=== PATIENT | female | born 1955 | race Caucasian/White ===

== ENCOUNTER → 2016-10-05 | Outpatient (CLI) | payer BC ==
[~2016-10-05] MED LIST: ASPI-435 PO; CARV6.25 PO; CHOL20007 PO; HALO0.0510 TOP; HMLIS SC; INSDGIPEN SC; IRBE-37 PO; METF-384 PO; MTRCR45 TOP; PANT40TA PO; ROSU40TA PO; TEMA-79 PO
[2016-10-05 13:15] LABS: ESTIMATED AVERAGE GLUCOSE 220 mg/dl; HA1C FLAG Normal (Normal)
[2016-10-05 14:03] LABS: BLOOD UREA NITROGEN 15 mg/dl (7-18); BUN/CREATININE RATIO 14.8 (10-20); CALCIUM 8.6 mg/dl (8.5-10.1); CARBON DIOXIDE 25 mmol/L (21-32); CHLORIDE 108 mmol/L (98-107); GLUCOSE 112 mg/dl (70-99); SODIUM 143 mmol/L (136-145)
== END | disposition home or self-care (01) ==
LOC: C.LABPBG 08:01
PROVIDERS: ATTEND Nurse Practitioner Family
DX: E11.29 Type 2 diabetes mellitus with other diabetic kidney complication (principal)

== ENCOUNTER → 2017-01-04 | Outpatient (CLI) | payer BC ==
[2017-01-04 13:09] LABS: ESTIMATED AVERAGE GLUCOSE 200 mg/dl; HA1C FLAG Normal (Normal)
[2017-01-04 13:16] LABS: THYROID STIMULATING HORMONE 1.11 uIu/ml (0.300-4.500)
== END | disposition home or self-care (01) ==
LOC: C.LABPBG 07:56
PROVIDERS: ATTEND Nurse Practitioner Family
DX: E11.65 Type 2 diabetes mellitus with hyperglycemia (principal); E78.5 Hyperlipidemia, unspecified

== ENCOUNTER → 2017-04-06 | Outpatient (CLI) | payer BC ==
[2017-04-06 13:43] LABS: ESTIMATED AVERAGE GLUCOSE 203 mg/dl; HA1C FLAG Normal (Normal)
== END | disposition home or self-care (01) ==
LOC: C.LABPBG 08:02
PROVIDERS: ATTEND Nurse Practitioner Family
DX: E11.65 Type 2 diabetes mellitus with hyperglycemia (principal)

== ENCOUNTER → 2017-05-24 | Outpatient (CLI) | payer BC ==
--- NOTE | 2017-05-24 07:40 | DIAGNOSTIC IMAGING REPORT ---
RENAL ULTRASOUND CLINICAL HISTORY: Recurrent urinary tract infection. COMPARISON STUDY: None. TECHNIQUE: Sonography of the kidneys and the urinary bladder was performed. FINDINGS: The right kidney measures 11.1 x 4.9 x 4.2 cm and the left measures 11.4 x 4.6 x 4.5 cm. Note is made of a 7 mm right renal cyst. There is slight prominence of each collecting system without rachel hydronephrosis. No renal calculi or solid masses are identified by sonography. Echogenic foci within the bladder are probably artifactual. There was a postvoid residual of 24.5 cc. IMPRESSION: 1. Slight prominence of each collecting system without rachel hydronephrosis. 2. Minimal postvoid residual 25 cc. 3. Echogenic foci within the bladder. The findings are likely artifactual but could be correlated with urinalysis. Electronically signed by: Abdirahman Kovacs M.D. 05/24/2017 7:38 AM Dictated Date/Time: 05/24/2017 7:18 AM
== END | disposition home or self-care (01) ==
LOC: C.ULTR 06:16
PROVIDERS: ATTEND Urology
DX: N39.0 Urinary tract infection, site not specified (principal); R93.41 Abnormal radiologic findings on diagnostic imaging of renal pelvis, ureter, or bladder

== ENCOUNTER → 2017-09-17 | Outpatient (CLI) | payer BC ==
[2017-09-17 12:34] LABS: HEMOGLOBIN A1C 8.2 % (4.5-5.6)
[2017-09-17 12:37] LABS: BLOOD UREA NITROGEN 19 mg/dl (7-18); CALCIUM 8.7 mg/dl (8.5-10.1); CARBON DIOXIDE 28 mmol/L (21-32); CREATININE 1.09 mg/dl (0.60-1.20); GLUCOSE 95 mg/dl (70-99); POTASSIUM 4.2 mmol/L (3.5-5.1); SODIUM 139 mmol/L (136-145)
== END | disposition home or self-care (01) ==
LOC: C.LABPBG 07:26
PROVIDERS: ATTEND Nurse Practitioner Family
DX: E11.65 Type 2 diabetes mellitus with hyperglycemia (principal); E11.29 Type 2 diabetes mellitus with other diabetic kidney complication; E78.5 Hyperlipidemia, unspecified

== ENCOUNTER → 2017-12-22 | Outpatient (CLI) | payer BC ==
[~2017-12-22] MED LIST changes: -HALO0.0510 TOP; +[UNRECOGNIZED DRUG - CODE] TOP
[2017-12-22 13:59] LABS: HEMOGLOBIN A1C 7.8 % (4.5-5.6)
== END | disposition home or self-care (01) ==
LOC: C.LABPBG 08:04
PROVIDERS: ATTEND Nurse Practitioner Family
DX: E11.65 Type 2 diabetes mellitus with hyperglycemia (principal)

== ENCOUNTER → 2018-01-06 | Outpatient (CLI) | payer BC ==
[2018-01-06 13:59] LABS: BASO % 0.2 %; BASO ABS # 0.01 K/uL (0-0.2); EOS % 3.2 %; EOS ABS # 0.18 K/uL (0-0.5); HEMATOCRIT 30.4 % (37-47); HEMOGLOBIN 9.6 g/dL (12.0-16.0); IG# 0.01 K/uL (0.00-0.02); LYMPH % 22.6 %; LYMPH ABS # 1.28 K/uL (1.2-3.4); MEAN CELL VOLUME 81.5 fL (80-100); MEAN CORPUSCULAR HEMOGLOBIN 25.7 pg (25-34); MEAN CORPUSCULAR HGB CONC 31.6 g/dl (32-36); MEAN PLATELET VOLUME 10.2 fL (7.4-10.4); MONO % 11.6 %; MONO ABS # 0.66 K/uL (0.11-0.59); NEUT % 62.2 %; NEUT ABS # 3.53 K/uL (1.4-6.5); PLATELET COUNT 267 K/uL (130-400); RED CELL DISTRIBUTION WIDTH CV 15.3 % (11.5-14.5); RED CELL DISTRIBUTION WIDTH SD 45.4 fL (36.4-46.3); WHITE BLOOD COUNT 5.67 K/uL (4.8-10.8)
[2018-01-06 14:51] LABS: ALBUMIN 3.6 gm/dl (3.4-5.0); ALKALINE PHOSPHATASE 113 U/L (45-117); ALT/SGPT 25 U/L (12-78); AST/SGOT 18 U/L (15-37); BLOOD UREA NITROGEN 15 mg/dl (7-18); CALCIUM 8.7 mg/dl (8.5-10.1); CARBON DIOXIDE 25 mmol/L (21-32); CHOLESTEROL 151 mg/dl (0-200); CREATININE 1.07 mg/dl (0.60-1.20); GLUCOSE 107 mg/dl (70-99); LDL CHOLESTEROL CALCULATED 78 mg/dl; POTASSIUM 4.3 mmol/L (3.5-5.1); SODIUM 141 mmol/L (136-145); TOTAL PROTEIN 6.8 gm/dl (6.4-8.2); TRANSFERRIN 333 mg/dl (200-360)
== END | disposition home or self-care (01) ==
LOC: C.LABPBG 08:35
PROVIDERS: ATTEND Physician Assistant Medical
DX: E78.5 Hyperlipidemia, unspecified (principal); I10 Essential (primary) hypertension; E55.9 Vitamin D deficiency, unspecified; D64.9 Anemia, unspecified; E11.9 Type 2 diabetes mellitus without complications; Z79.899 Other long term (current) drug therapy

== ENCOUNTER 2023-09-21 10:35 | Inpatient (IN) ==
[2023-09-21] MEDS: SODIUM CHLORIDE 0.9% 1,000 ML IV SCH (11:34)
[2023-09-21 11:51] LABS: Basophils # (auto) 0.02 K/uL (0.00-0.20); Basophils % (auto) 0.2 %; Eosinophils # (auto) 0.08 K/uL (0.00-0.50); Eosinophils % (auto) 0.8 %; Hematocrit (blood only) 30.4 % (37.0-47.0); Hemoglobin 10.2 g/dl (12.0-16.0); Immature Granulocytes # (auto) 0.03 K/uL (0.01-0.20); Immature Granulocytes % (auto) 0.3 %; Lymphocytes # (auto) 1.17 K/uL (1.20-3.40); Mean Corpuscular Hemoglobin 27.9 pg (25.0-34.0); Mean Corpuscular Hgb Conc 33.6 g/dL (32.0-36.0); Mean Corpuscular Volume 83.3 fL (80.0-100.0); Monocytes % (auto) 8.2 %; Neutrophils # (auto) 7.61 K/uL (1.40-6.50); Neutrophils % (auto) 78.5 %; Platelet Count 232 K/uL (130-400); RDW Coefficient of Variation 13.6 % (11.5-14.5); RDW Standard Deviation 41.6 fL (36.4-46.3); Red Blood Count 3.65 M/uL (4.20-5.40); White Blood Count 9.71 K/ul (4.8-10.8)
--- NOTE | 2023-09-21 11:58 | Emergency Department Note ---
Impression & Plan TRISTA (acute kidney injury), Dehydration ED Provider Note ED Provider Note NAME: CARLO CHAMORRO AGE:68 SEX: Female : 1955 ARRIVES VIA: Private vehicle INFORMANT: Patient ED PROVIDER(s): Adenike Cohen DO CHIEF COMPLAINT: Referred by PCP due to abnormal outpatient labs HPI: This is a 68 yo female who presents to the ER after being referred here by her PCP due to abnormal outpatient labs that were performed yesterday for a routine follow-up visit. Patient denies any prior history of kidney dysfunction and states she has been feeling unwell since about Elieser time. She states she was previously told her kidneys were stable and has previously seen Dr. Coburn of nephrology. She denies any recent back pain or abdominal pain, no recent urinary tract infection. She denies any prior history of kidney stone. She states since starting Ozempic per endocrinology, she feels she has had a decreased appetite, increased fatigue and malaise. She denies any overt fevers, chills, or URI symptoms. She states she has had decreased stools due to decreased oral intake. She states she has not noticed any overt change in her urine. PAST MEDICAL HISTORY:See Below PAST SURGICAL HISTORY:See Below FAMILY HISTORY:See Below SOCIAL HISTORY:See Below HOME MEDICATIONS:See Below ALLERGIES:See Below VITALS:See Below PHYSICAL EXAMINATION: GENERAL: alert, well appearing, well nourished, no distress, non-toxic EYE EXAM: normal conjunctiva, PERRL and EOM's grossly intact OROPHARYNX: no exudate, no erythema, lips, buccal mucosa, and tongue normal and mucous membranes are mildly dry NECK: supple, no nuchal rigidity, no adenopathy, non-tender LUNGS: Clear to auscultation. Normal chest wall mechanics, no w/r/r HEART: no murmurs, S1 normal and S2 normal ABDOMEN: abdomen soft, non-tender, normo-active bowel sounds, no masses, no rebound or guarding. SKIN: no rashes, petechiae, orbruising UPPER EXTREMITIES: upper extremities are grossly normal. FROM, nml pulses b/l. LOWER EXTREMITIES: No pitting edema. FROM, nml pulses b/l. NEURO EXAM: Normal sensorium, cranial nerves II-XII grossly intact, normal speech, no facial droop,nogross weakness of arms, no gross weakness of legs. Gross sensation intact. No ataxia. Vital Signs: reviewed and remarkable Differential Diagnosis: TRISTA, dehydration, electrolyte abnormality, nephrotic syndrome, nephritic syndrome, ureterolithiasis, UTI, medication adr, as well as others were considered MEDICAL DECISION MAKING: This is a 68-year-old female presents emergency department after being called and told to come to the ER by her PCP due to abnormal outpatient labs. Patient well-appearing and vital signs stable on arrival. Labs drawn and sent, IV established, EKG performed at bedside and interpreted by me and patient monitored on telemetry. Patient started on gentle IV fluid rehydration. Urine collected and patient sent for renal ultrasound. Patient found to have significant increase in creatinine compared to priors. Patient discussed with hospitalist team for additional evaluation and management, renal ultrasound and urinalysis pending at that time. Patient admits to recent decreased intake and likely coming dehydration however also suspicious for possible medication ADR. No prior history of kidney dysfunction. I have a low suspicion for occult infectious etiology at this time. Consultation(s): 1250: Discussed with Jessica Real hospitalist team, for additional evaluation and management. ER Treatment Provided: See below Diagnostics Interpreted By Me: -ECG: Normal sinus at 74, first-degree AV block, normal axis, normal intervals, no acute ST/T wave changes -Cardiac Monitoring: An order was placed for continuous cardiac monitoring. The monitor shows a rate of 80 with normal sinus rhythm. -Laboratory studies: As stated above and show below. -Imaging studies: Ultrasound renal: No obvious bladder stone or nephrolithiasis Triage Nursing Note Reviewed Prior/Outside Records Reviewed-prior outside labs including prior creatinines Past Med/Surg History Medical History History of uterine cancer 1982, uterine and cervical; only surgical tx needed Palpitations Recurrent UTI Surgical History History of arthroscopy of both shoulders History of esophagogastroduodenoscopy (EGD) Hx of colonoscopy Hx of total hysterectomy with removal of both tubes and ovaries History of cardiac cath 2012, was having neck pain and issues, ph kiesha, no stents>no findings; f/u dr. briceno, [facility] [place] Hx of fusion of cervical spine x2, 1 year apart; ROM "is good" Hx of cataract extraction rt/lt Gastric bypass status for obesity ~2008 History of cholecystectomy Family History Mother Coronary heart disease Social History Smoking Status: Never smoker Second Hand Exposure: Yes (hx [id number]); Do You Dip or Chew Tobacco: No; Hx Alcohol Use: No Hx Substance Use: No Preferred Language: Tajik Communication Ability: Effective Sql Server Dba Required: No Beliefs That Will Affect Care: None marital status: Current Living Situation: Spouse current occupational status: retired Feels Safe at Home: Yes Safety Concerns: Feels Safe At This Time Assistive Devices: None Allergies Allergies Allergy/AdvReac Type Severity Reaction Status Date / Time pioglitazone [From Actos] Allergy itching, Verified 05/03/23 10:24 swelling Home Meds Home Medications Medication Instructions Recorded Confirmed Lactobacillus 1 cap PO QAM 03/08/19 09/21/23 acidophilus-Bifidobac.animalis 31 billion cell capsule cyanocobalamin (vitamin B-12) 1,000 mcg IM Q30D 03/08/19 09/21/23 1,000 mcg/mL injection solution pantoprazole 40 mg tablet,delayed 40 mg PO QAM 03/08/19 09/21/23 release pen needle, diabetic 32 gauge x #10 ea 04/14/19 03/30/23/32" (BD Ultra-Fine Georgie Pen Needle) rosuvastatin 40 mg tablet 40 mg PO HS 04/14/19 09/21/23 irbesartan 150 mg tablet (Avapro) 150 mg PO QAM 08/29/20 09/21/23 carvedilol 6.25 mg tablet (Coreg) 6.25 mg PO BID 09/15/21 09/21/23 cholecalciferol (vitamin D3) 125 125 mcg PO QAM 09/15/21 09/21/23 mcg (5,000 unit) capsule insulin glargine 100 unit/mL (3 50 unit subcut HS 09/15/21 09/21/23 mL) subcutaneous pen (Lantus Solostar U-100 Insulin) baclofen 10 mg tablet 10 mg PO DAILY PRN muscle spasms 03/13/23 02/06/24 insulin lispro 100 unit/mL See Rx Instructions subcut .COMPLEX 05/03/23 09/21/23 subcutaneous solution (Humalog U-100 Insulin) insulin syringe-needle U-100 0.5 #10 ea 05/03/23 05/03/23 mL 31 gauge x 5/16" (BD Insulin Syringe Ultra-Fine) semaglutide 0.25 mg or 0.5 mg (2 0.5 mg subcut Q7D 09/21/23 09/21/23 mg/3 mL) subcutaneous pen injector (Ozempic) Previous Rx's Medication Instructions Recorded flash glucose scanning reader #1 ea 09/16/21 (FreeStyle Sidney 2 [place]) flash glucose sensor (FreeStyle #6 ea 03/11/22 Sidney 2 Sensor kit) metformin 500 mg tablet,extended 1,000 mg (2 x 500 mg) PO BID #360 05/12/22 release 24 hr tabs ciprofloxacin HCl 500 mg tablet 500 mg PO BID PRN UTI symptoms #30 01/27/23 tabs flash glucose sensor (FreeStyle #2 ea 04/20/23 Sidney 2 Sensor kit) Results & Data (ED) Vital Signs Vital Signs - 24 hr 09/21/23 10:40 09/21/23 12:23 09/21/23 12:26 Temperature 36.9 C Temperature Source Temporal Artery Scan Pulse Rate 62 78 78 Pulse Rate from SpO2 Sensor 76 Respiratory Rate 16 12 Respiratory Effort / Characteristics Non-Labored Spontaneous Respiratory Depth Normal Blood Pressure 155/71 H Blood Pressure Mean 99 Pulse Oximetry 98 97 Oxygen Delivery Method Room Air Sepsis Recent Fever Within 48 Hours No Sepsis New/Unexplained Change in Mental Status No Sepsis Action Taken by Nursing No Action Required 09/21/23 12:30 09/21/23 12:30 09/21/23 12:40 Temperature Temperature Source Pulse Rate 79 71 Pulse Rate from SpO2 Sensor 76 64 Respiratory Rate 20 18 Respiratory Effort / Characteristics Respiratory Depth Blood Pressure 130/67 Blood Pressure Mean 96 Pulse Oximetry 97 97 Oxygen Delivery Method Sepsis Recent Fever Within 48 Hours Sepsis New/Unexplained Change in Mental Status Sepsis Action Taken by Nursing Laboratory Data 09/21/23 11:30 09/21/23 16:46 Lab Results 09/21/23 Range/Units 11:30 WBC 9.71 (4.8-10.8) K/ul RBC 3.65 L (4.20-5.40) M/uL Hgb 10.2 L (12.0-16.0) g/dl Hct 30.4 L (37.0-47.0) % MCV 83.3 (80.0-100.0) fL MCH 27.9 (25.0-34.0) pg MCHC 33.6 (32.0-36.0) g/dL RDW Std Deviation 41.6 (36.4-46.3) fL RDW Coeff of Dany 13.6 (11.5-14.5) % Plt Count 232 (130-400) K/uL MPV 10.0 (9.4-12.4) fL Immature Gran % (Auto) 0.3 % Neut % (Auto) 78.5 % Lymph % (Auto) 12.0 % [place] % (Auto) 8.2 % Eos % (Auto) 0.8 % Baso % (Auto) 0.2 % Neut # (Auto) 7.61 H (1.40-6.50) K/uL Lymph # (Auto) 1.17 L (1.20-3.40) K/uL [place] # (Auto) 0.80 H (0.11-0.59) K/uL Eos # (Auto) 0.08 (0.00-0.50) K/uL Baso # (Auto) 0.02 (0.00-0.20) K/uL Immature Gran # (Auto) 0.03 (0.01-0.20) K/uL Sodium 138 (136-145) mmol/L Potassium 2.9 L (3.5-5.1) mmol/L Chloride 101 (98-107) mmol/L Carbon Dioxide 29 (21-32) mmol/L Anion Gap 8 (3-11) BUN 34 H (6-23) mg/dl Creatinine 3.05 H (0.6-1.2) mg/dl Est Cr Clr Drug Dosing 15.8 ml/min Est GFR ( Amer) 17.2 ml/min Est GFR (Non-Af Amer) 14.8 ml/min BUN/Creatinine Ratio 11.1 (10-20) Glucose 92 (70-99(Fasting)) mg/dl Calcium 8.9 (8.6-10.3) mg/dl Magnesium 2.1 (1.7-2.4) mg/dl Total Bilirubin 0.7 (0.2-1.0) mg/dl AST 134 H (13-39) U/L ALT 155 H (7-52) U/L Alkaline Phosphatase 66 (34-104) U/L Total Creatine Kinase 5168 H (26-192) U/L Total Protein 6.0 (6.0-8.3) gm/dl Albumin 3.7 (3.4-5.0) gm/dl Globulin 2.3 L (2.5-4.0) gm/dl Albumin/Globulin Ratio 1.6 (0.9-2) Lipase 41 (11-82) U/L Administered Medications Carvedilol (Carvedilol 6.25 Mg Tab) 6.25 mg PO BIDM VIOLETA Stop: 10/21/23 16:59 Last Admin: 09/21/23 17:16 Dose: 6.25 mg Documented By: ANAID Lactated Ringer's (Lr) 1,000 mls @ 100 mls/hr IV .Q10H VIOLETA Stop: 10/21/23 14:52 Last Admin: 09/21/23 15:16 Dose: 100 mls/hr Documented By: ANAID Discontinued Medications Sodium Chloride (Nss) 1,000 mls @ 125 mls/hr IV .Q8H VIOLETA Stop: 10/21/23 11:29 Last Infusion: 09/21/23 15:16 Dose: 0 mls/hr Documented By: Admin: 09/21/23 11:34 Dose: 125 mls/hr Documented By: PROSPER Potassium Chloride (K Eriberto / Wtr) 10 meq in 100 mls @ 100 mls/hr IV Q1H VIOLETA Stop: 09/21/23 17:29 Last Admin: 09/21/23 16:53 Dose: 100 mls/hr Documented By: Infusion: 09/21/23 16:42 Dose: Infused Documented By: Admin: 09/21/23 15:42 Dose: 100 mls/hr Documented By: Infusion: 09/21/23 15:29 Dose: Infused Documented By: Admin: 09/21/23 14:29 Dose: 100 mls/hr Documented By: TEODORA Potassium Chloride (Potassium Chloride Crtab 20 Meq Tabcr) 40 meq PO NOW STA Stop: 09/21/23 13:12 Last Admin: 09/21/23 14:29 Dose: 40 meq Documented By: ARS Imaging Data Radiologist's Impression: Renal Ultrasound 09/21/23 12:40 RENAL ULTRASOUND HISTORY: Acute kidney injury. COMPARISON: Renal ultrasound 05/24/2017. FINDINGS: Right kidney: 11.4 cm. No hydronephrosis. This 1.3 cm parapelvic cyst. Normal corticomedullary differentiation and cortical thickness. Left kidney: 12.3 cm. No hydronephrosis. Normal corticomedullary differentiation and cortical thickness. Bladder: No bladder wall thickening. Only the left ureteral jet was identified this time. IMPRESSION: 1. No hydronephrosis. 2. Normal bladder. ACT 112: Negative or not required by law. Electronically signed by: Zach Machuca M.D. 09/21/2023 2:54 PM Discharge Plan Visit Data Chief Complaint: Referred by Doctor Stated Complaint: ABNORMAL LABS, DEHYDRATION ED Provider: Adenike Cohen Discharge Problem: TRISTA (acute kidney injury), Dehydration Patient Disposition: Admitted As Inpatient Discharge Instructions Interventions: ED Discharge Assessment Last Done: 09/21/23 14:54
[2023-09-21 12:08] LABS: Albumin Globulin Ratio 1.6 (0.9-2); Albumin Level 3.7 gm/dl (3.4-5.0); BUN Creatinine Ratio 11.1 (10-20); Bilirubin,Total 0.7 mg/dl (0.2-1.0); Calcium 8.9 mg/dl (8.6-10.3); Creatinine Clr Calc Pharmacy 15.8 ml/min; Est GFR (African American) 17.2 ml/min; Est GFR (Non-African American) 14.8 ml/min; Globulin 2.3 gm/dl (2.5-4.0); Magnesium 2.1 mg/dl (1.7-2.4); Potassium 2.9 mmol/L (3.5-5.1)
--- NOTE | 2023-09-21 13:26 | History & Physical Report ---
Date of Service September 21, 2023 Assessment & Plan (1) Acute worsening of stage 3 chronic kidney disease: (2) Hypokalemia: (3) Diabetic nephropathy associated with type 2 diabetes mellitus: (4) Hypertension: (5) Dyslipidemia: Plan This is a 68 yr old F who has a significant PMH of insulin dependent T2DM, CKD-[address] Gallardo, Hx of Ilir en Y, HTN, hx of cervical/uterine Ca, urinary incontinence who presents to ED at referral of PCP due to abnormal labs. Acute on Chronic CKD-3 admit to med tele baseline cr ~1.[address] Gallardo obtain urine studies Renal/Bladder US consult nephro hold nephrotoxic agents - metformin, irbesartan Recommend discontinue Ozempic IVF LR @ 100cc/hr repeat BMP @ 1700 further recs to following pending nephro consult Hypokalemia replace Elevated LFTS AST 134, ALT 155 no abd pain, will repeat LFT in a.m. consider RUQ US if worsening Insulin dependent T2DM last a1c 7.7 07/26/23 Lantus/novolog per protocol hold metformin Pt has been significantly requiring less insulin due to weight loss and very poor intake will place on lower dose while hospitalized HTN chronic, stable continue coreg, hold irbesartan closely monitor DVT ppx: SQ Heparin FULL CODE PCP: Dr. Arellano Dispo: med/tele Pt was seen and examined in collaboration with Dr. Zamorano, please see addendum A total of 75 minutes was spent coordinating, documenting, and providing care for this patient excluding time spent in the performance of separately billed services. This included personally viewing all current laboratories and imaging studies, medication reconciliation, outpatient chart review. History of Present Illness Chief Complaint: Referred by PCP 2/2 TRISTA Primary Care Provider: Glen Arellano This is a 68 yr old F who has a significant PMH of insulin dependent T2DM, CKD-[address] Gallardo, Hx of Ilir en Y, HTN, hx of cervical/uterine Ca, urinary incontinence who presents to ED at referral of PCP due to abnormal labs. Pt follows Dr. Gallardo of [facility] and was last seen 07/26/23. This note was reviewed. Baseline cr around 1.2-1.4. On 07/26 cr was 1.7. Pt reports recently starting Ozempic at 0.25mg with dose increase to 0.5mg. She initially started the medication back in April of 2023. Since this time she complains of decreased appetite, increase fatigue and malaise. She denies f/c/s, chest pain, sob, uri sx, n/v/d, abd pain. She denies prior hx of kidney stone, urinary freq/dysuria, or hematuria. She feels she has been urinating about the same, no less/more. She follows [facility] for incontinence, Cardiology and endocrine for diabetes. Pt PCP records unable to be reviewed, PCP Dr. Arellano. She further complains of central back pain in shoulder blade region. She has loss weight, 173 to 154 since 05/09. The sight/smell of food does not set right with her. She is always thirsty. She denies taking any NSAIDS, tobacco use or etoh use. Allergies Allergy/AdvReac Type Severity Reaction Status Date / Time pioglitazone [From Actos] Allergy itching, Verified 05/03/23 10:24 swelling Home Medications Medication Instructions Recorded Confirmed Type Lactobacillus 1 cap PO QAM 03/08/19 09/21/23 History acidophilus-Bifidobac.animalis 31 billion cell capsule cyanocobalamin (vitamin B-12) 1,000 mcg IM Q30D 03/08/19 09/21/23 History 1,000 mcg/mL injection solution pantoprazole 40 mg tablet,delayed 40 mg PO QAM 03/08/19 09/21/23 History release pen needle, diabetic 32 gauge x #10 ea 04/14/19 03/30/23 History 5/32" (BD Ultra-Fine Georgie Pen Needle) rosuvastatin 40 mg tablet 40 mg PO HS 04/14/19 09/21/23 History irbesartan 150 mg tablet (Avapro) 150 mg PO QAM 08/29/20 09/21/23 History carvedilol 6.25 mg tablet (Coreg) 6.25 mg PO BID 09/15/21 09/21/23 History cholecalciferol (vitamin D3) 125 125 mcg PO QAM 09/15/21 09/21/23 History mcg (5,000 unit) capsule insulin glargine 100 unit/mL (3 50 unit subcut HS 09/15/21 09/21/23 History mL) subcutaneous pen (Lantus Solostar U-100 Insulin) flash glucose scanning reader #1 ea 09/16/21 05/03/23 Rx (FreeStyle [place] 2 [place]) flash glucose sensor (FreeStyle #6 ea 03/11/22 05/03/23 Rx Sidney 2 Sensor kit) metformin 500 mg tablet,extended 1,000 mg (2 x 500 mg) PO BID #360 05/12/22 09/21/23 Rx release 24 hr tabs baclofen 10 mg tablet 10 mg PO DAILY PRN muscle spasms 10/26/22 09/21/23 History ciprofloxacin HCl 500 mg tablet 500 mg PO BID PRN UTI symptoms #30 01/27/23 09/21/23 Rx tabs flash glucose sensor (FreeStyle #2 ea 04/20/23 05/03/23 Rx Sidney 2 Sensor kit) insulin lispro 100 unit/mL See Rx Instructions subcut .COMPLEX 05/03/23 09/21/23 History subcutaneous solution (Humalog U-100 Insulin) insulin syringe-needle U-100 0.5 #10 ea 05/03/23 05/03/23 History mL 31 gauge x 5/16" (BD Insulin Syringe Ultra-Fine) semaglutide 0.25 mg or 0.5 mg (2 0.5 mg subcut Q7D 09/21/23 09/21/23 History mg/3 mL) subcutaneous pen injector (LAVEGOempic) Past Med/Surg History Medical History History of uterine cancer 1982, uterine and cervical; only surgical tx needed Palpitations Recurrent UTI Surgical History History of arthroscopy of both shoulders History of esophagogastroduodenoscopy (EGD) Hx of colonoscopy Hx of total hysterectomy with removal of both tubes and ovaries History of cardiac cath 2012, was having neck pain and issues, ph kiesha, no stents>no findings; f/u dr. briceno, [facility] [place] Hx of fusion of cervical spine x2, 1 year apart; ROM "is good" Hx of cataract extraction rt/lt Gastric bypass status for obesity ~2008 History of cholecystectomy Family History Mother Coronary heart disease Social History Smoking Status: Never smoker Second Hand Exposure: Yes (hx [id number]); Do You Dip or Chew Tobacco: No; Hx Alcohol Use: No Hx Substance Use: No Preferred Language: Telugu Communication Ability: Effective Sharepoint Designer Developer Required: No Beliefs That Will Affect Care: None marital status: Current Living Situation: Spouse current occupational status: retired Feels Safe at Home: Yes Assistive Devices: None Review of Systems Review of Systems: All systems reviewed & are unremarkable except as noted in HPI & below Physical Exam Physical Exam: please refer to Dr. Zamorano addendum for physical exam findings. Results & Data Results & Data Vital Signs (Past 12 Hours) Vital Signs Temp Pulse Resp BP Pulse Ox O2 Del Method 09/21/23 12:40 71 18 97 09/21/23 12:30 130/67 09/21/23 12:30 79 20 97 09/21/23 12:26 78 09/21/23 12:23 78 12 97 09/21/23 10:40 36.9 C 62 16 155/71 H 98 Room Air Medications Administered Medication List Sodium Chloride (Nss) 1,000 mls @ 125 mls/hr IV .Q8H VIOLETA Stop: 10/21/23 11:29 Last Admin: 09/21/23 11:34 Dose: 125 mls/hr Documented By: PROSPER COVID-19 Results Results COVID-19 Adm Lab Results: RBC 3.65 M/uL (4.20-5.40) L 09/21/23 WBC 9.71 K/ul (4.8-10.8) 09/21/23 Hgb 10.2 g/dl (12.0-16.0) L 09/21/23 Hct 30.4 % (37.0-47.0) L 09/21/23 Plt Count 232 K/uL (130-400) 09/21/23 Neutrophils (%) (Auto) 78.5 % 09/21/23 Lymphocytes (%) (Auto) 12.0 % 09/21/23 Monocytes # (Auto) 0.80 K/uL (0.11-0.59) H 09/21/23 Eosinophils # (Auto) 0.08 K/uL (0.00-0.50) 09/21/23 Immature Granulocyte % (Auto) 0.3 % 09/21/23 Neutrophils # (Auto) 7.61 K/uL (1.40-6.50) H 09/21/23 Lymphocytes # (Auto) 1.17 K/uL (1.20-3.40) L 09/21/23 Monocytes # (Auto) 0.80 K/uL (0.11-0.59) H 09/21/23 Eosinophils # (Auto) 0.08 K/uL (0.00-0.50) 09/21/23 Basophils # (Auto) 0.02 K/uL (0.00-0.20) 09/21/23 Immature Granulocyte # (Auto) 0.03 K/uL (0.01-0.20) 4 Na 138 mmol/L (136-145) 09/21/23 K 2.9 mmol/L (3.5-5.1) L 09/21/23 Cl 101 mmol/L (98-107) 09/21/23 CO2 29 mmol/L (21-32) 09/21/23 Anion Gap 8 (3-11) 09/21/23 BUN 34 mg/dl (6-23) H 09/21/23 Creatinine 3.05 mg/dl (0.6-1.2) H 09/21/23 BUN/Creatinine Ratio 11.1 (10-20) 09/21/23 Glucose Level 92 mg/dl (70-99(Fasting)) 09/21/23 Ca 8.9 mg/dl (8.6-10.3) 09/21/23 Total Bilirubin 0.7 mg/dl (0.2-1.0) 09/21/23 AST/SGOT 134 U/L (13-39) H 09/21/23 ALT/SGPT 155 U/L (7-52) H 09/21/23 Alkaline Phosphatase 66 U/L (34-104) 09/21/23 Total Protein 6.0 gm/dl (6.0-8.3) 09/21/23 Albumin 3.7 gm/dl (3.4-5.0) 09/21/23 Globulin 2.3 gm/dl (2.5-4.0) L 09/21/23 Albumin/Globulin Ratio 1.6 (0.9-2) 09/21/23 Total CK Pending 09/21/23 Code Status & VTE Plan Code Status FULL CODE VTE Prophylaxis Plan VTE Prophylaxis will be ordered: Yes Supervising Physician Co-Signing Physician Notes I have seen and discussed the case with the collaborating PETER. I agree with the above H&P. I have reviewed and confirmed the patients medical history, the findings on physical examination, and the patients diagnosis and treatment plan with [place] GREEN and agree with the information documented. In short, Ms. Ramos is a 68 year old insulin dependent T2DM, CKD-[address] Gallardo, Hx of Ilir en Y, HTN, hx of cervical/uterine Ca, urinary incontinence admitted for eval of TRISTA on CKDIII in setting of progressive weakness, poor appetite. Patient states that she has felt like she was on a decline since July, but generally has felt poor since starting Ozempic. She notes that over the last week she gas felt more fatigued and experienced bilateral flank discomfort, but denies changes to volume/frequency of urination, nor denies any dysuria or other symptoms. She states her bowels have been more constipated lately as well. Denies any confusion or edema of extremities. Patient also notes sensation of "heart beating out of her chest" while laying down at night. Labs reviewed and notable for transaminitis without symptoms, TRISTA to 3.05 and K to 2.9. UA with protein c/w prior, blood no RBCs--CK pending GENERAL APPEARANCE: AxOx4, unwell appearing F, no acute distress. HEENT: NC, AT. MMM. EOMI, clear conjunctiva, oropharynx clear. NECK: Supple without lymphadenopathy. No stiffness or restricted ROM. HEART: Normal rate and regular rhythm, normal S1/S1, no m/r/g LUNGS: CTAB, moving air well. No crackles or wheezes are heard. ABDOMEN: Soft, nontender, nondistended with good bowel sounds heard. BACK: mild CVAT, no obvious deformity. EXTREMITIES: Without cyanosis, clubbing or edema. NEUROLOGICAL: Grossly nonfocal. Alert and oriented, moving all 4 extremities. CN not formally tested but appear grossly intact. Skin: Warm and dry without any rash. #TRISTA on CKDIII -IVF -Repeat BMP -Urine lytes, protein/cr -IF bmp without improvement, plan for ortega Daily weights, I/Os Nephrology consult Follow up renal ultrasound Hold Irbesartan #Hypokalemia 2.9 on arrival 40meq via IV and 40 PO Monitor on Tele Trend BMP and replace prn #DMTII -Discontinue ozempic -SSI, patient reports minimal use of humalog at home, and reducing glargine Rest of plan as above I have reviewed the advanced practitioner's documentation, and I agree with, and take responsibility for the plan of care
[2023-09-21 13:40] LABS: Appearance Urine Cloudy (Clear); Bacteria Urine Automated Negative (Negative); Bilirubin Urine Negative (Negative); Blood Urine 3+ (Negative); Color Urine Yellow; Epithelial Cell Urine Auto >30 /lpf (0-5); Glucose Urine UA Negative (Negative); Ketones Urine Negative (Negative); Leukocyte Esterase Urine 1+ (Negative); Nitrite Urine Negative (Negative); Protein Urine 2+ (Negative); RBC Urine Automated 0-4 /hpf (0-4); Specific Gravity Urine 1.007 (1.000-1.030); Urobilinogen Urine Negative (Negative); pH Urine 5.5 (4.5-7.5)
[2023-09-21 14:03] LABS: Protein Creatinine Ratio Urine 2.7 (0-0.2); Total Protein Urine Random 141.8 mg/dl (0-11.9); Urine Potassium 14.4 mmol/L
[2023-09-21] MEDS: POTASSIUM CHLORIDE / WTR 10 MEQ/100 ML PLCT IV SCH (14:29)
[2023-09-21] MEDS: POTASSIUM CHLORIDE CRTAB 20 MEQ TABCR PO STA (14:29)
--- NOTE | 2023-09-21 14:29 | Electrocardiogram Report ---
Test Reason : Blood Pressure : / mmHG Vent. Rate : 074 BPM Atrial Rate : 074 BPM P-R Int : 230 ms QRS Dur : 072 ms QT Int : 394 ms P-R-T Axes : 059 018 063 degrees QTc Int : 437 ms Sinus rhythm with 1st degree A-V block When compared with ECG of 03-JUN-2022 10:34, Sinus rhythm has replaced Ectopic atrial rhythm Confirmed by Kwabena Harris ([id number]) on 09/21/2023 2:29:41 PM Referred By: REFERRED SELF Confirmed By:Kwabena Harris
[2023-09-21] MEDS ORDERED: DEXTROSE 50% 50 ML SYRINGE IV PRN (14:53)
[2023-09-21] MEDS ORDERED: GLUCAGON FOR INJ 1 MG VIAL SQ PRN (14:53)
[2023-09-21] MEDS ORDERED: GLUCOSE 40% GEL 15 GM TUBE PO PRN (14:53)
[2023-09-21] MEDS ORDERED: GLUCOSE 10 TAB/TUBE PO PRN (14:53)
--- NOTE | 2023-09-21 14:55 | Ultrasound Report ---
RENAL ULTRASOUND HISTORY: Acute kidney injury. COMPARISON: Renal ultrasound 05/24/2017. FINDINGS: Right kidney: 11.4 cm. No hydronephrosis. This 1.3 cm parapelvic cyst. Normal corticomedullary differ entiation and cortical thickness. Left kidney: 12.3 cm. No hydronephrosis. Normal corticomedullary differentiation and cortical thickne ss. Bladder: No bladder wall thickening. Only the left ureteral jet was identified this time. IMPRESSION: 1. No hydronephrosis. 2. Normal bladder. ACT 112: Negative or not required by law. Electronically signed by: Zach Machuca M.D. 09/21/2023 2:54 PM
[2023-09-21] MEDS: LACTATED RINGER'S 1,000 ML IV SCH (15:16)
--- OUTSIDE RECORDS SUMMARY | 2023-09-21 15:16 | External Medical Summary | Summary of Care ---
Author Name Unknown Organization [facility] Address [address] [place] [address] Phone [phone] Care Team Providers Care Website Optimization Strategist Name Role Phone Glen Arellano MD Primary Care Provider + [phone] Encounter Details Date Type Department Care Team (Late st Contact Info) Description 08/30/2023 Orders Only Nephrology, Will Romo [address] [facility] [place] [address] GallardoMelissa galvez MD [address] [facility] [place] [address] Allergies Active Allergy Reactions Criticality Noted Date Comments Pioglitazone Rash 10/05/2019 Spironolactone Other (Please comment) 3 Severe dizziness even with low dose. documented as of this encounter (statuses as of 08/30/2023) Medications Medication Sig Dispensed Refills Start Date End Date Status PROTONIX 40 MG PO TBECIndications:Acute marginal ulcer 1 tablet each day 30 4 10/28/2009 Active HUMALOG 100 UNIT/ML SUBQ SOLN 10 units daily 0 Active LANTUS 100 UNIT/ML SUBQ SOLN 20 units eevery AM 0 Active MetFORMIN (GLUCOPHAGE) 1000 MG Tablet Take 1 Tablet by mouth 2 times a day with morning and evening meals. 0 Active rosuvastatin (CRESTOR) 40 MG Tablet Take 1 Tablet by mouth in the morning. 0 05/17/2017 Active Aspirin 81 MG Tablet Take 1 Tablet by mouth in the morning. 0 Active Probiotic Product (PROBIOTIC & ACIDOPHILUS EX ST) Capsule Take 1 Cap by mouth three times a day with meals. 0 Active vitamin b-12 (CYANOCOBALAMIN) 1000 MCG/ML injection Inject 1,000 mcg as directed Every Month. 0 08/10/2019 Active Irbesartan 150 MG Oral Tablet Take 1 Tablet by mouth at bedtime. 0 11/13/2020 Active Ozempic (0.25 or 0.5 MG/DOSE) 2 MG/3ML Solution Pen-injector Inject 0.5 mg under the skin once a week. 0 07/17/2023 Active Carvedilol 6.25 MG Oral Tablet (Coreg) Take 1 Tablet by mouth 2 times a day with morning and evening meals. 0 07/22/2023 Active documented as of this encounter (statuses as of 08/30/2023) Active Problems Problem Noted Date Diagnosed Date Chronic kidney disease, stage 3b 10/27/2021 Overview: Per CKD protocol Iron deficiency anemia 01/19/2018 HTN, goal below 140/90 11/18/2017 Vitamin deficiency 03/25/2010 OVERWEIGHT, BMI 25-29 11/11/2009 Overview: Per Obesity Taxonomy Nausea 07/30/2009 Overview: ICD-10 update of inactive term DYSLIPIDEMIA, GOAL LDL BELOW 100 07/29/2009 Overview: Per Lipid Taxonomy. Intestinal postoperative nonabsorption 9 HTN, goal below 130/80 07/09/2009 Overview: Modified per HTN protocol #16. [facility] RESEARCH OTHER*[id number] 06/28/2009 ADVANCE DIRECTIVE INFORMATION 12/26/2008 Overview: No.No booklets available. documented as of this encounter (statuses as of 08/30/2023) Resolved Problems Problem Noted Date Diagnosed Date Resolved Date Type 2 diabetes mellitus wit h stage 3b chronic kidney disease 10/27/2021 08/01/2023 Overview: Per CKD protocol Chronic kidney disease, stage 3a 01/28/2021 10/29/2021 Overview: Per CKD protocol Type 2 diabetes mellitus wit h stage 3a chronic kidney disease 12/24/2020 10/29/2021 Overview: Per CKD protocol Diabetes mellitus with stage 3 chronic kidney disease 11/25/2020 12/26/2020 Overview: Per CKD protocol - Per Diabetes Taxonomy. ICD-10 update of inactive term CKD (chronic kidney disease) stage 3, GFR 30-59 ml/min 11/18/2017 10/26/2019 Type 2 diabetes mellitus wit h stage 3 chronic kidney disease, without long-term current use of insulin 06/13/2009 11/28/2020 Overview: Per Diabetes Taxonomy. ICD-10 update of inactive term Obesity, BMI not known 02/07/200911/11 Overview: Per Obesity Taxonomy Mixed dyslipidemia 02/07/2009 12/14/200 9 Overview: Per Lipid Taxonomy. Other osteoporosis without c urrent pathological fracture 02/07/2009 03/04/2009 Overview: ICD-10 update of inactive term Type 2 diabetes mellitus wit h hemoglobin A1c goal of less than 7.0% 12/26/2008 06/13/2009 Overview: Per Diabetes Taxonomy. ICD-10 update of inactive term HTN, goal to be determined 12/26/2008 1 09/08/2008 Overview: Modified per HTN protocol #16. documented as of this encounter (statuses as of 08/30/2023) Immunizations Name Administration Dates Next Due COVID-19 mRNA, LNP-s, No Pre serve, 2-Dose Series (Pfizer) 05/15/2021,10/29/2020,10/08/2020 Pneumococcal Polysaccharide PPV23 (Pneumovax) 04/26/2020,05/16/2015 Seasonal Influenza, PF, 6 M & above, IM , (FluLaval or Fluzone) 04/04/2020 Seasonal Influenza, Trivalen t, Adjuvanted, 65+ yrs 04/12/2021,04/08/2019 Zoster Vaccine Recombinant (Shingrix) 05/13/2020 ,03/04/2020 documented as of this encounter Social History Tobacco Use Types Packs/Day Years Used Date Smoking Tobacco: Never Smokeless Tobacco: Never Alcohol Use Standard Drinks/Week Comments No 0 (1 standard drink = 0.6 oz pur e alcohol) Sex and Gender Information Value Date Recorded Sex Assigned at Not on file Gender Identity Not on file Sexual Orientation Not on file Job Start Date Occupation Industry Not on file Not on file Not on file documented as of this encounter Plan of Treatment Upcoming Encounters Date Type Department Care Team (Late st Contact Info) Description 04/25/2024 2:00 PM EDT Office Visit Nephrology [address] [place] [address] Abbie Costello PA-C [address] [place] [address] [place] [address] Health Maintenance Due Date Last Done Comments DXA Scan 1953 Depression Screening 1965 Hepatitis C Screening 1971 DTaP,Tdap,and Td Vaccines (1 - Tdap) 1972 Mammogram 1993 Cologuard 1998 Colonoscopy 1998 Colorectal Cancer Screening 1998 Fecal Occult Blood Test 1998 Sigmoidoscopy 1998 Hepatitis B (1 of 3 - Risk 3-dose series) 2013 Pneumococcal Vaccine: 65+ Years (2 - PCV) 04/26/2021 04/26/2020, 05/16/2015 CKD PHOS USE SMARTSET 29759 04/15/202307/16, 04/15/2022, 10/17/2021, Additional history exists COVID-19 Vaccine ( - 2022- season) 2023 05/15/2021, 10/29/2020, 10/08/2020 Influenza Vaccine (FLU shot) (#1) 2023 04/12/2021, 04/04/2020, 04/08/2019 GFR 09/19/2023 07/26/2023, 08/11/2022, 10/28/2022, Additional history exists CKD HGB USE SMARTSET 81259 03/19/202407/26, 03/19/2023, 09/18/2022, Additional history exists Albumin/Creatinine Ratio 07/26/2024 023, 09/18/2022, 04/15/2022, Additional history exists Lipid Panel 03/19/2028 07/26/2023, 08/0 11/2022, 09/18/2022, Additional history exists Zoster Vaccines Completed 05/13/2020, 03/04/2020 Diabetic Eye Exam Discontinued 10/15/2021, , 09/18/2019, Additional history exists GARDASIL-HPV IMMUNIZATION SERIES Aged Out No longer eligible based on patient's age to complete this topic MENINGOCOCCAL (MENACTRA/MENVEO) Aged Out No longer eligible based on patient's age to complete this topic documented as of this encounter Medical Devices Not on filedocumented as of this encounter Procedures Procedure Name Priority Date/Time Associated Diagnosis Comments CHEMISTRY-OUTSIDE Routine 07/26/2023 CHEMISTRY-OUTSIDE Routine 07/26/2023 documented in this encounter Results * (ABNORMAL) CHEMISTRY-OUTSIDE (07/26/2023) Not all results display below - see scan for full detail OUTSIDE LAB (SEE SCANNED REPORT) Comment:PH [place]-CBCD,G FR,CMP,HGBA1C,MPG,LIPID,PHOS CREATININE-OUTSID E LAB 1.71(A) 0.55 - 1.05 MG/DL OUTSIDE LAB (SEE SCANNED REPORT) EGFR-OUTSIDE LAB 32(A) 60 ML/MIN OUT SIDE LAB (SEE SCANNED REPORT) POTASSIUM-OUTSIDE LAB 3.1(A) 3.5 - 5.1 MMOL OUTSIDE LAB (SEE SCANNED REPORT) GLUCOSE-OUTSIDE LAB 104 70 - 110 MG/DL OUTSIDE LAB (SEE SCANNED REPORT) HOURS FASTING OUTSID E LAB (SEE SCANNED REPORT) TRIGLYCERIDES-OUT SIDE LAB 95 30 - 200 MG/DL OUTSIDE LAB (SEE SCANNED REPORT) CHOLESTEROL-OUTSI DE LAB 104 200 MG/DL OUTSIDE LAB (SEE SCANNED REPORT) HDL-OUTSIDE LAB 50 40 - 59 MG/DL OUTSIDE LAB (SEE SCANNED REPORT) CHOL/HDL RATIO-OUTSIDE LAB OUTSIDE LA B (SEE SCANNED REPORT) LDL (CALCULATED)-OUTS [facility] 35 100 MG/DL OUTSIDE LAB (SEE SCANNED REPORT) LDL (DIRECT MEASURE)-OUTSIDE LAB OUTSIDE LAB (SEE SCANNED REPORT) HEMOGLOBIN, [id number] LAB 7.7(A) 3.8 - 5.6 % OUTSIDE LAB (SEE SCANNED REPORT) PHOSPHORUS-OUTSID E LAB 2.7 2.5 - 4.9 MG/DL OUTSIDE LAB (SEE SCANNED REPORT) PTH-OUTSIDE LAB OUTS [facility] (SEE SCANNED REPORT) MICROALBUMIN RATIO-OUTSIDE LAB OUTSIDE LA B (SEE SCANNED REPORT) PROTEIN, UA-OUTSIDE LAB OUTSIDE LAB (SEE SCANNED REPORT) HEMOGLOBIN-OUTSID E LAB 11.5(A) 12 - 16 GM/DL OUTSIDE LAB (SEE SCANNED REPORT) 07/26/2023 Jana Watkins PA-C LABORATORY OUTSIDE LAB (SEE SCANNED REPORT) * (ABNORMAL) CHEMISTRY-OUTSIDE (07/26/2023) Not all results display below - see scan for full detail SCAN INCLUDES: MICROALBU MIN, VIT D, CA, PTH, OUTSIDE LAB (SEE SCANNED REPORT) CREATININE-OUTSID E LAB OUTSIDE LAB (SEE SCANNED REPORT) EGFR-OUTSIDE LAB OUT SIDE LAB (SEE SCANNED REPORT) POTASSIUM-OUTSIDE LAB OUTSIDE LAB (SEE SCANNED REPORT) GLUCOSE-OUTSIDE LAB OUTSIDE LAB (SEE SCANNED REPORT) HOURS FASTING OUTSID E LAB (SEE SCANNED REPORT) TRIGLYCERIDES-OUT SIDE LAB OUTSIDE LAB (SEE SCANNED REPORT) CHOLESTEROL-OUTSI DE LAB OUTSIDE LAB (SEE SCANNED REPORT) HDL-OUTSIDE LAB OUTS [facility] (SEE SCANNED REPORT) CHOL/HDL RATIO-OUTSIDE LAB OUTSIDE LA B (SEE SCANNED REPORT) LDL (CALCULATED)-OUTS [facility] OUTSIDE LAB (SEE SCANNED REPORT) LDL (DIRECT MEASURE)-OUTSIDE LAB OUTSIDE LAB (SEE SCANNED REPORT) HEMOGLOBIN, K0V-CHMPIVW LAB OUTSIDE LAB (SEE SCANNED REPORT) PHOSPHORUS-OUTSID E LAB OUTSIDE LAB (SEE SCANNED REPORT) PTH-OUTSIDE LAB 58.3 18.5 - 88.0 PG/ML OUTSIDE LAB (SEE SCANNED REPORT) MICROALBUMIN RATIO-OUTSIDE LAB 196.2(A) 0.0 - 60.0 MG/GM CR OUTSIDE LAB (SEE SCANNED REPORT) PROTEIN, UA-OUTSIDE LAB OUTSIDE LAB (SEE SCANNED REPORT) HEMOGLOBIN-OUTSID E LAB OUTSIDE LAB (SEE SCANNED REPORT) 07/26/2023 Jana Watkins PA-C LABORATORY OUTSIDE LAB (SEE SCANNED REPORT) documented in this encounter Advance Directives Latest Code Status on File Code Status Date Activated Date Inactivated Comments Full Code 03/13/2010 12:34 PM 03/14/2010 1:25 AM This order reflects the patients wishes and were consensually agreed upon. Code Status History Code Status Date Activated Date Inactivated Comments Full Code 07/08/2009 5:30 PM 07/10/2009 5:07 PM Thi s order reflects the patients wishes and were consensually agreed upon. Full Code 07/08/2009 10:24 AM 07/08/2009 5:30 PM Th is order reflects the patients wishes and were consensually agreed upon. Care Teams Website Optimization Strategist Relationship Specialty Start Date End Date Glen Arellano MD [address] [place] [address] PCP - General Family Medicine 04/05/17 documented as of this encounter
--- OUTSIDE RECORDS SUMMARY | 2023-09-21 15:16 | External Medical Summary | Summary of Care ---
Author Name Unknown Organization [facility] Address [address] [facility] [place] [address] Phone [phone] Care Team Providers Care Console Assembler Name Role Phone Glen Arellano MD Primary Care Provider + [phone] Reason for Visit * Reason Comments Blood Pressure Check Encounter Details Date Type Department Care Team (Late st Contact Info) Description 08/25/2023 9:00 AM EST Nurse Only Nephrology [address] [place] [address] [place], Nurse Nephrology [address] [place] [address] Blood Pressure Check Allergies Active Allergy Reactions Criticality Noted Date Comments Pioglitazone Rash 10/05/2019 Spironolactone Other (Please comment) 3 Severe dizziness even with low dose. documented as of this encounter (statuses as of 08/26/2023) Medications Medication Sig Dispensed Refills Start Date [...] as of this encounter (statuses as of 08/26/2023) Active Problems Problem Noted Date Diagnosed Date [...] Modified per HTN protocol #16. [facility] RESEARCH OTHER*[id number] 06/28/2009 ADVANCE DIRECTIVE INFORMATION 12/26/2008 Overview: No.No booklets available. documented as of this encounter (statuses as of 08/26/2023) Resolved Problems Problem Noted Date Diagnosed Date [...] as of this encounter (statuses as of 08/26/2023) Immunizations Name Administration Dates Next Due COVID-19 [...] Date Smoking Tobacco: Never Smokeless Tobacco: Never Tobacco Cessation:Counseling Given: Not Answered Alcohol Use Standard Drinks/Week Comments No 0 (1 standard drink = 0.6 oz pur e alcohol) Sex and Gender Information Value Date Recorded Sex Assigned at Not on file Gender Identity Not on file Sexual Orientation Not on file Job Start Date Occupation Industry Not on file Not on file Not on file documented as of this encounter Last Filed Vital Signs Vital Sign Reading Time Taken Comments Blood Pressure 145/75 08/25/2023 8:55 AM EST [facility] cuff Pulse - - Temperature - - Respiratory Rate - - Oxygen Saturation - - Inhaled Oxygen Concentration - - Weight - - Height - - Body Mass Index - - documented in this encounter Progress Notes * Eunice Austin RN - 08/26/2023 9:15 AM EST Blood pressure monitor return with log. Will scan to chart. documented in this encounter Nursing Notes * Eunice Austin RN - 08/25/2023 8:55 AM EST Ambulatory BP cuff size regular applied to right arm. BP monitor number [id number]. Log sheet, instructions on use and recording of activities explained to patient/caregiver with verbal understanding of same. [facility] home blood pressure cuff validated at this visit as well. documented in this encounter Plan of Treatment Upcoming Encounters Date Type Department Care Team (Late st Contact Info) Description 04/25/2024 2:00 PM EDT Office Visit Nephrology [address] [place] [address] Abbie Costello PA-C [address] [facility] [place] [address] Health Maintenance Due Date Last Done Comments [...] 04/26/2021 04/26/2020, 05/16/2015 CKD PHOS USE SMARTSET 00529 04/15/202303/18, 10/17/2021, 11/18/2017, Additional history exists COVID-19 Vaccine ( - season) 2023 05/15/2021, 10/29/2020, 10/08/2020 Influenza Vaccine (FLU shot) (#1) 2023 04/12/2021, 04/04/2020, 04/08/2019 Albumin/Creatinine Ratio 09/18/2023 023, 04/15/2022, 11/25/2021, Additional history exists GFR 09/19/2023 03/19/2023, 10/14, 09/18/2022, Additional history exists CKD HGB USE SMARTSET 69116 03/19/202403/19, 09/18/2022, 04/15/2022, Additional history exists Lipid Panel 03/19/2028 03/19/2023, 02/10/2022, 11/25/2021, Additional history exists Zoster Vaccines Completed 05/13/2020, 03/04/2020 Diabetic Eye Exam Discontinued 10/15/2021, , 09/18/2019, Additional history exists GARDASIL-HPV IMMUNIZATION SERIES Aged Out No longer eligible based on patient's age to complete this topic MENINGOCOCCAL (MENACTRA/MENVEO) Aged Out No longer eligible based on patient's age to complete this topic documented as of this encounter Medical Devices Not on filedocumented as of this encounter Advance Directives Latest Code Status [...] and were consensually agreed upon. Care Teams Console Assembler Relationship Specialty Start Date End Date Glen Arellano MD [address] [place] [address] PCP - General Family Medicine 04/05/17 documented as of this encounter
--- OUTSIDE RECORDS SUMMARY | 2023-09-21 15:16 | External Medical Summary | Summary of Care ---
Author Name Unknown Organization [facility] Address [address] [facility] [place] [address] Phone [phone] Care Team Providers Care Ruby On Rails Web Developer Name Role Phone Glen Arellano MD Primary Care Provider + [phone] Reason for Visit * Reason Comments Blood Pressure Check Encounter Details Date Type Department Care Team (Late st Contact Info) Description 08/25/2023 9:00 AM EST Nurse Only Nephrology [address] [place] [address] [place], Nurse Nephrology [address] [place] [address] Blood Pressure Check Allergies Active Allergy Reactions Criticality Noted Date Comments Pioglitazone Rash 10/05/2019 Spironolactone Other (Please comment) 3 Severe dizziness even with low dose. documented as of this encounter (statuses as of 08/27/2023) Medications Medication Sig Dispensed Refills Start Date [...] as of this encounter (statuses as of 08/27/2023) Active Problems Problem Noted Date Diagnosed Date [...] Modified per HTN protocol #16. LOPE[facility] RESEARCH OTHER*[id number] 06/28/2009 ADVANCE DIRECTIVE INFORMATION 12/26/2008 Overview: No.No booklets available. documented as of this encounter (statuses as of 08/27/2023) Resolved Problems Problem Noted Date Diagnosed Date [...] as of this encounter (statuses as of 08/27/2023) Immunizations Name Administration Dates Next Due COVID-19 [...] applied to right arm. BP monitor number [id number]. Log sheet, instructions on use and recording of activities explained to patient/caregiver with verbal understanding of same. [facility] home blood pressure cuff validated at this visit as well. documented in this encounter Plan of Treatment Upcoming Encounters Date Type Department Care Team (Late st Contact Info) Description 04/25/2024 2:00 PM EDT Office Visit Nephrology [address] [place] [address] Abbie Costello PA-C [address] [facility] [place] [address] Health Maintenance Due Date Last Done Comments [...] 04/26/2021 04/26/2020, 05/16/2015 CKD PHOS USE SMARTSET 83678 04/15/202303/18, 10/17/2021, 11/18/2017, Additional history exists COVID-19 Vaccine ( - season) 2023 05/15/2021, 10/29/2020, 10/08/2020 Influenza Vaccine (FLU shot) (#1) 2023 04/12/2021, 04/04/2020, 04/08/2019 Albumin/Creatinine Ratio 09/18/2023 023, 04/15/2022, 11/25/2021, Additional history exists GFR 09/19/2023 03/19/2023, 10/14, 09/18/2022, Additional history exists CKD HGB USE SMARTSET 68983 03/19/202403/19, 09/18/2022, 04/15/2022, Additional history exists Lipid [...] and were consensually agreed upon. Care Teams Ruby On Rails Web Developer Relationship Specialty Start Date End Date Glen Arellano MD [address] [place] [address] PCP - General Family Medicine 04/05/17 documented as of this encounter
--- OUTSIDE RECORDS SUMMARY | 2023-09-21 15:17 | External Medical Summary | Summary of Care ---
Author Name Unknown Organization [facility] Address [address] [place] [address] Phone [phone] Care Team Providers Care Boxcar Weigher Name Role Phone Glen Arellano MD Primary Care Provider + [phone] Encounter Details Date Type Department Care Team Description 05/17/2023 Orders Only Outcomes Research Department [address] [place] [address] Pepper Elizondo CHRA MyCode Research Other*[id number] Allergies Active Allergy Reactions Severity Noted Date Comments Pioglitazone Rash 10/05/2019 documented as of this encounter (statuses as of 05/17/2023) Medications Medication Sig Dispensed Refills Start Date [...] as directed Every Month. 0 08/10/2019 Active carvedilol (COREG) 12.5 MG Tablet Take 1 Tablet by mouth in the morning. 0 09/10/2019 Active Irbesartan 150 MG Oral Tablet Take 1 Tablet by mouth at bedtime. 0 11/13/2020 Active documented as of this encounter (statuses as of 05/17/2023) Active Problems Problem Noted Date Type 2 diabetes mellitus with stage 3b c hronic kidney disease 10/27/2021 Overview: Per CKD protocol Chronic kidney disease, stage 3b 022 Overview: Per CKD protocol Iron deficiency anemia 01/19/2018 HTN, goal below 140/90 11/18/2017 Vitamin deficiency 03/25/2010 OVERWEIGHT, BMI 25-29 11/11/2009 Overview: Per Obesity Taxonomy Nausea 07/30/2009 Overview: ICD-10 update of inactive term DYSLIPIDEMIA, GOAL LDL BELOW 100 009 Overview: Per Lipid Taxonomy. Intestinal postoperative nonabsorption 1 09/16/2008 HTN, goal below 130/80 07/09/2009 Overview: Modified per HTN protocol #16. [facility] OTHER*[id number] ADVANCE DIRECTIVE INFORMATION 12/26/2008 Overview: No.No booklets available. documented as of this encounter (statuses as of 05/17/2023) Resolved Problems Problem Noted Date Resolved Date Chronic kidney disease, stage 3a 01/28/2021 10/29/2021 Overview: Per CKD protocol Type 2 diabetes mellitus wit h stage 3a chronic kidney disease 12/24/2020 10/29/2021 Overview: Per CKD protocol Diabetes mellitus with stage 3 chronic kidney di sease 11/25/2020 12/26/2020 Overview: Per CKD protocol - Per Diabetes Taxonomy. ICD-10 update of inactive term CKD (chronic kidney disease) stage 3, GFR 30-59 ml/min 11/18/2017 10/26/2019 Type 2 diabetes mellitus wit h stage 3 chronic kidney disease, without long-term current use of insulin 06/13/200911/14 Overview: Per Diabetes Taxonomy. ICD-10 update of inactive term Obesity, BMI not known 02/07/2009 0 Overview: Per Obesity Taxonomy Mixed dyslipidemia 02/07/2009 07/29/2009 Overview: Per Lipid Taxonomy. Other osteoporosis without current pathological fracture 02/07/2009 03/04/2009 Overview: ICD-10 update of inactive term Type 2 diabetes mellitus wit h hemoglobin A1c goal of less than 7.0% 12/26/2008 06/13/2009 Overview: Per Diabetes Taxonomy. ICD-10 update of inactive term HTN, goal to be determined 12/26/200807/09 Overview: Modified per HTN protocol #16. documented as of this encounter (statuses as of 05/17/2023) Immunizations Name Administration Dates Next Due COVID-19 mRNA, LNP-s, No Pre serve, 2-Dose Series (Pfizer) 05/15/2021,10/29/2020,10/08/2020 Pneumococcal Polysaccharide PPV23 (Pneumovax) 04/26/2020,05/16/2015 SEASONAL INFLUENZA, PF, 6 M & Above, IM , (FLULAVAL or FLUZONE) 04/04/2020 Seasonal Influenza, Trivalen t, Adjuvanted, 65+ yrs 04/12/2021,04/08/2019 Zoster Vaccine Recombinant (Shingrix) 05/13/2020 ,03/04/2020 documented as of this encounter Social History Tobacco Use Types Packs/Day Years Used Date Smoking Tobacco: Never Smokeless Tobacco: Never Alcohol Use Standard Drinks/Week Comments No 0 (1 standard drink = 0.6 oz pur e alcohol) Sex Assigned at Date Recorded Not on file Job Start Date Occupation Industry Not on file Not on file Not on file documented as of this encounter Plan of Treatment Upcoming Encounters Date Type Specialty Care Team Description 07/22/2023 Office Visit Nephrology Melissa Gallardo MD [address] [facility], [place] [address] Scheduled Orders Name Type Priority Associated Diagnoses Orde r Schedule MYCODE INITIAL ADULT Lab Routine MyCode Research Other*[id number] Expected: 05/17/2023 (Approximate), Expires: 06/05/2024 Health Maintenance Due Date Last Done Comments DXA Scan 1953 Depression Screening 1965 DIABETES-EYE EXAM 1971 Diabetic Foot Exam 1971 Hepatitis C Screening 1971 DTaP,Tdap,and Td Vaccines (1 - Tdap) 1972 Mammogram 1993 Cologuard 1998 Colonoscopy 1998 Colorectal Cancer Screening 1998 Fecal Occult Blood Test 1998 Sigmoidoscopy 1998 Pneumococcal Vaccine: 65+ Years (2 - PCV) 04/26/2021 04/26/2020, 05/16/2015 COVID-19 Vaccine (4 - Pfizer series) 07/10/2021 05/15/2021, 10/29/2020, 10/08/2020 HbA1c 03/18/2023 09/18/2022, 11/14, 08/27/2021, Additional history exists CKD PHOS USE SMARTSET 71779 04/15/2023 08/3 08/2021, 10/17/2021, 11/18/2017, Additional history exists Influenza Vaccine (FLU shot) (#1) 2023 04/12/2021, 04/04/2020, 04/08/2019 GFR 04/30/2023 10/28/2022, 02/0 10/2022, 04/15/2022, Additional history exists Albumin/Creatinine Ratio 09/18/2023 023, 04/15/2022, 11/25/2021, Additional history exists CKD HGB USE SMARTSET 72213 09/18/202309/18, 04/15/2022, 11/25/2021, Additional history exists Lipid Panel 09/18/2027 09/18/2022, 11/14, 08/27/2021, Additional history exists Zoster Vaccines Completed 05/13/2020, 03/04/2020 GARDASIL-HPV IMMUNIZATION SERIES Aged Out No longer eligible based on patient's age to complete this topic Hepatitis B Aged Out No longer eligi ble based on patient's age to complete this topic MENINGOCOCCAL (MENACTRA/MENVEO) Aged Out No longer eligible based on patient's age to complete this topic documented as of this encounter Medical Devices Not on filedocumented as of this encounter Visit Diagnoses Diagnosis MyCode Research Other*[id number] documented in this encounter Advance Directives Latest [...] and were consensually agreed upon. Care Teams Boxcar Weigher Relationship Specialty Start Date End Date Glen Arellano MD [address] [place] [address] PCP - General Family Medicine 04/05/17 documented as of this encounter
--- OUTSIDE RECORDS SUMMARY | 2023-09-21 15:17 | External Medical Summary | Summary of Care ---
Author Name Unknown Organization [facility] [address] [facility] [address] Phone [phone] Care Team Providers Care Fire Control Technician B Name Role Phone Eliza Arellano MD Primary Care Provider + [phone] Reason for Visit * Reason Comments Chronic Kidney Disease (CKD) Hypertension Encounter Details Date Type Department Care Team (Late st Contact Info) Description 07/22/2023 3:00 PM EST Office Visit Nephrology [address] [place] [address] Melissa Gallardo MD [address] [place] [address] [place] [address] Stage 3 chronic kidney disease, unspecified whether stage 3a or 3b CKD (HCC)*; HTN, goal below 130/80; White coat syndrome with diagnosis of hypertension; Albuminuria Allergies Active Allergy Reactions Criticality Noted Date Comments Pioglitazone Rash 10/05/2019 Spironolactone Other (Please comment) 3 Severe dizziness even with low dose. documented as of this encounter (statuses as of 08/01/2023) Medications Medication Sig Dispensed Refills Start Date End Date Status PROTONIX 40 MG PO TBECIndications:Ac [place] marginal ulcer 1 tablet each day 30 4 10/28/2009 Active HUMALOG 100 UNIT/ML SUBQ SOLN 10 units daily 0 Act jennifer LANTUS 100 UNIT/ML SUBQ SOLN 20 units [...] morning and evening meals. 0 07/22/2023 Active carvedilol (COREG) 12.5 MG Tablet Take 1 Tablet by mouth in the morning. 0 09/10/2019 07/22/2023 Discontinued documented as of this encounter (statuses as of 08/01/2023) Active Problems Problem Noted Date Diagnosed Date [...] Modified per HTN protocol #16. [facility] OTHER*[id number] 06/28/2009 ADVANCE DIRECTIVE INFORMATION 12/26/2008 Overview: No.No booklets available. documented as of this encounter (statuses as of 08/01/2023) Resolved Problems Problem Noted Date Diagnosed Date [...] Overview: Per Obesity Taxonomy Mixed dyslipidemia 02/07/2009 9 Overview: Per Lipid Taxonomy. Other osteoporosis without c urrent pathological fracture 02/07/2009 03/04/2009 Overview: ICD-10 update of inactive term Type 2 diabetes mellitus wit h hemoglobin A1c goal of less than 7.0% 12/26/2008 06/13/2009 Overview: Per Diabetes Taxonomy. ICD-10 update of inactive term HTN, goal to be determined 12/26/200809/08/2008 Overview: Modified per HTN protocol #16. documented as of this encounter (statuses as of 08/01/2023) Immunizations Name Administration Dates Next Due COVID-19 [...] Sign Reading Time Taken Comments Blood Pressure 155/74 07/22/2023 3:35 PM EST Pulse 73 07/22/2023 3:35 PM EST Temperature 36.4 C (97.5 F) 07/22/2023 3:33 PM ES T Respiratory Rate 18 07/22/2023 3:33 PM EST Oxygen Saturation 98% 07/22/2023 3:33 PM EST Inhaled Oxygen Concentration - - Weight 73 kg (161 lb) 07/22/2023 3:33 PM EST Height - - Body Mass Index 29.45 11/13/2020 1:06 PM EDT documented in this encounter Patient Instructions * Patient Instructions* Melissa Gallardo MD - 07/22/2023 4:13 PM EST -will arrange 24 hr BP check for you -when you come for 24 hr BP cuff application, bring home cuff so we can check it -no medication changes for now -check blood and urine tests when able (slips given) -avoid medicines like aleve, advil, ibuprofen, aspirin more than 81 mg daily and other NSAIDS whichare not good for kidney patients. Take only tylenol (acetaminophen) up to 2000 mg daily as needed for pain or as directed by your primary care provider. -be as active as you can safely be documented in this encounter Progress Notes * Melissa Gallardo MD - 07/22/2023 3:23 PM EST NEPHROLOGY CLINIC NOTE Nephrology [address] [place] [address] 07/22/2023, 3:23 PM Patient Name: Jeniffer Ramos BACKGROUND: 68 year old female presents for f/u of ckd stage 3 A/B and 250-500 mg albuminuria from diabetes and chronic suppressive antibiotics. Past Medical history includes 2009 gastric bypass in 2008 in [place] (Lost about 50 pounds), diabetes since 1989 and on metformin and insulin. Also w/ HTN. Hx of cervical and uterine cancer in 1981-had a complete hysterectomy in 1982. No radiation or chemo needed. No heart attacks or strokes. Has had blown c spine disk in past needing surgery; for some time did follow w/ cardiology after that b/c presents like heart attack. Started spring 2016 on low dose suppressive bactrim per [facility]; sees dr hendricks. Has 3 day course of cipro to use PRN UTI sx per urology. Follows w/ [facility] hematology for anemia. Home blood pressure checks: Yes - presents with bp cuff NSAID use: No Herbals/supplements: Vit D, probiotics History of stones: once "long long time ago" Family history of CKD or ESRD: Daughter (also seen by Paulina) No tobacco. No nsaids. Walk 6 miles a day in warm weather. Exercises indoors reluctantly in cold weather TODAY 07/22/2023: no acute interval events clinically. Had been on spironolactone but stopped b/c ofdizziness >> did not respond/improove w/ cutting down dose States sbp is 110-120s at home or pcp. Cuff last validated here 2019. Hx of intolerance to many meds. Finds ozempic >> GI upset Had implant L post SI joint >> Axonic SMN >> tells the brain not to void bladder so often; no w/ nocturia only 2X nightly REVIEW OF SYSTEMS General: + + fatigue ongoing, lost 9 lb on ozempic 3 mos after starting ozempic Head: No significant headache Respiratory: No cough,No wheezing, No shortness of breath Cardiovascular:No chest pain, No palpitations, and No syncope Gastrointestinal: No nausea, vomiting, diarrhea No blood in stools No abdominal pain Urinary: No dysuria, No hematuria. No flank pain ; nocturia as above Musculoskeletal: no worrisome muscle/joint pains ; edema from last time gone Skin: No itching No presyncopal or orthostatic symptoms; no falls Current Outpatient Medications Medication Sig Dispense Refill PROTONIX 40 MG PO TBEC 1 tablet each day 30 4 HUMALOG 100 UNIT/ML SUBQ SOLN 10 units daily LANTUS 100 UNIT/ML SUBQ SOLN 20 units eevery AM MetFORMIN (GLUCOPHAGE) 1000 MG Tablet Take 1 Tablet by mouth 2 times a day with morning and eveningmeals. rosuvastatin (CRESTOR) 40 MG Tablet Take 1 Tablet by mouth in the morning. Aspirin 81 MG Tablet Take 1 Tablet by mouth in the morning. Probiotic Product (PROBIOTIC & ACIDOPHILUS EX ST) Capsule Take 1 Cap by mouth three times a daywith meals. vitamin b-12 (CYANOCOBALAMIN) 1000 MCG/ML injection Inject 1,000 mcg as directed Every Month. Irbesartan 150 MG Oral Tablet Take 1 Tablet by mouth at bedtime. Ozempic (0.25 or 0.5 MG/DOSE) 2 MG/3ML Solution Pen-injector Inject 0.5 mg under the skin once a week. Carvedilol 6.25 MG Oral Tablet (Coreg) Take 1 Tablet by mouth 2 times a day with morning and evening meals. No current facility-administered medications for this visit. Review of patient's allergies indicates: Allergen Reactions Actos [Pioglitazone] Rash Spironolactone Other (Please comment) Severe dizziness even with low dose. PHYSICAL EXAMINATION: BP Readings from Last 6 Encounters: 07/22/23 155/74 10/20/22 140/90 04/22/22 140/75 10/17/21 116/72 11/13/20 138/74 10/18/19 111/59 Wt Readings from Last 6 Encounters: 07/22/23 73 kg (161 lb) 10/20/22 78.7 kg (173 lb 6.4 oz) 04/22/22 77.1 kg (169 lb 14.4 oz) 10/17/21 78.7 kg (173 lb 8 oz) 11/13/20 76.7 kg (169 lb) 10/05/19 76.7 kg (169 lb) Pulse Readings from Last 6 Encounters: 07/22/23 73 10/20/22 92 04/22/22 98 10/17/21 76 11/13/20 60 10/18/19 68 NAD, oriented x 3, ambulatory and on table w/o asst Normocephalic, atraumatic, eomi nonicteric sclerae MMM Supple neck RRR w/o m/g/r; no edema CTAB w/ reasonable air mvt NT abd, centripedal obesity, +BS, soft No cyanosis or clubbing No rash No tremor, focal or global weakness; fluent speech, good historian LABS: Recent Labs Units 03/19/23 0000 10/28/22 0738 09/18/22 0000 04/15/22 0742 11/25/21 0000 10/17/21 1457 SODIUM - [facility] mmol/L -- 141 -- 141 -- 140 POTASSIUM - [facility] mmol/L -- 4.4 -- 4.5 -- 4.3 POTASSIUM-OUTSIDE LAB MMOL/L 4.0 -- 4.2 -- < > -- CHLORIDE - [facility] mmol/L -- 104 -- 102 -- 103 CO2 - [facility] mmol/L -- 29 -- 27 -- 26 EGFR-OUTSIDE LAB ML/MIN 46 -- 37* -- < > -- BUN - [facility] mg/dL -- 17 -- 16 -- 15 CREATININE - [facility] mg/dL -- 1.2* -- 1.1* -- 1.4* CREATININE-OUTSIDE LAB MG/DL 1.27* -- 1.47* -- < > -- ESTIMATED GLOMERULAR FILTRATION RATE - [facility] mL/min -- 49* -- 52* -- 42* < > = values in this interval not displayed. Recent Labs Units 03/19/23 0000 09/18/22 0000 04/15/22 0742 11/25/21 0000 HGB - [facility] g/dL -- -- 11.4* -- HEMOGLOBIN-OUTSIDE LAB G/DL 11.4* 11.7* -- 12.2 Recent Labs Units 10/28/22 0738 04/15/22 0742 10/17/21 1457 CALCIUM - [facility] mg/dL 9.0 9.3 9.4 PHOSPHORUS - [facility] mg/dL -- 3.1 3.4 25-HYDROXY VITAMIN D - [facility] ng/mL 51 -- 64 PTH - [facility] pg/mL 67* 49 49 Recent Labs Units 03/19/23 0000 09/18/22 0000 11/25/21 0000 08/27/21 0000 HEMOGLOBIN, [id number] LAB % 8.4* 7.9* 8.0* 8.4* Recent Labs Units 04/15/22 0742 10/17/21 1457 ALBUMIN / CREATININE RATIO, URINE - [facility] mg/g Creat 217* 141* PROTEIN/ CREATININE RATIO, URINE - [facility] mg/g -- 544* Recent Labs Units 04/15/22 0742 10/17/21 1457 CLARITY, URINE - [facility] Clear Clear GLUCOSE, URINE - [facility] mg/dL Negative >=1000* BILIRUBIN, URINE - [facility] Negative Negative KETONE, URINE - [facility] mg/dL Negative Negative SPECIFIC GRAVITY, URINE - [facility] 1.018 1.018 BLOOD, URINE - [facility] Trace* Trace* PH, URINE - [facility] Units 6.0 6.0 PROTEIN, URINE - [facility] mg/dL 100* 30* PROTEIN, RANDOM URINE - [facility] mg/dL -- 43 UROBILINOGEN, URINE - [facility] mg/dL Normal Normal NITRITE, URINE - [facility] Negative Negative ESTERASE, URINE - [facility] Negative Negative BACTERIA, URINE - [facility] /HPF 0-25 0-25 WBC, URINE - [facility] /HPF 0-2 0-2 RBC, URINE - [facility] /HPF 0-2 0-2 03/19/2023 outside labs CBC 01/24.271 Hemoglobin A1c 8.4% Basic metabolic panel: Sodium 141, potassium 4.0, chloride 111, bicarb 26, BUN 18, creatinine 1.3, estimated GFR 46, blood glucose 57 ASSESSMENT AND PLAN: Stage 3 chronic kidney disease, unspecified whether stage 3a or 3b CKD (HCC) (Primary) - BASIC METABOLIC PANEL - ALBUMIN / CREATININE RATIO, URINE - PTH - 25-HYDROXY VITAMIN D - PHOSPHORUS - BP MONITORING 24HR, AMBULATORY HTN, goal below 130/80 - BASIC METABOLIC PANEL - ALBUMIN / CREATININE RATIO, URINE - BP MONITORING 24HR, AMBULATORY White coat syndrome with diagnosis of hypertension - BASIC METABOLIC PANEL - ALBUMIN / CREATININE RATIO, URINE - BP MONITORING 24HR, AMBULATORY Albuminuria - BASIC METABOLIC PANEL - ALBUMIN / CREATININE RATIO, URINE Follow Up: Return in about 3 months (around 10/21/2023) for clinic visit w/ , clinic visit w/ [place]. |For: clinic visit w/ , clinic visit w/ [place] | Check-out note: Needs RENAL NV for cuff check CKD3 w/ eGFR running in 40s on last labs listed above > and on past labs over a year ago w/ significant albuminuria up to about 225 mg daily -cont irbesartan -metformin dose ok -focus on bp control Pt reports home bp controlled; In clinic readings certainly not controlled -validate home cuff Ambulatory BP -lifestyle measures -cont coreg, irbesartan current doses Patient Instructions -will arrange 24 hr BP check for you -when you come for 24 hr BP cuff application, bring home cuff so we can check it -no medication changes for now -check blood and urine tests when able (slips given) -avoid medicines like aleve, advil, ibuprofen, aspirin more than 81 mg daily and other NSAIDS whichare not good for kidney patients. Take only tylenol (acetaminophen) up to 2000 mg daily as needed for pain or as directed by your primary care provider. -be as active as you can safely be Melissa Gallardo MD Nephrology [address] [place] [address] CC: Ref: ELIZA ARELLANO[[id number]] [address] [place] [address] (office) [phone] (fax) PCP: ELIZA ARELLANO Dr [address] [place] [address] [phone] This chart was completed in part utilizing get2play Speech Voice Recognition Software. Randomword insertions, pronoun errors, and incomplete sentences are an occasional consequence of this system due to software limitations, and ambient noise. Any questions or concerns about the content, text, or information contained within the body of this dictation should be directly addressed to the provider for clarification. documented in this encounter Nursing Notes * Eunice Austin RN - 07/22/2023 3:37 PM EST Follow up visit today. No recent illness or hospital stays. States she had been on Spironolactone and it caused extreme dizziness. documented in this encounter Plan of Treatment Upcoming Encounters Date Type Department Care Team (Late st Contact Info) Description 08/25/2023 9:00 AM EST Nurse Only Nephrology [address] [place] [address] [place], Nurse Nephrology [address] [place] [address] 04/25/2024 2:00 PM EDT Office Visit Nephrology [address] [place] [address] Abbie Costello PA-C [address] [facility] [place] [address] Scheduled Orders Name Type Priority Associated Diagnoses Orde r Schedule BASIC METABOLIC PANEL Lab Routine Stage 3 chronic kidney disease, unspecified whether stage 3a or 3b CKD (HCC) HTN, goal below 130/80 White coat syndrome with diagnosis of hypertension Albuminuria Ordered: 07/22/2023 ALBUMIN / CREATININE RATIO, URINE Lab Routine Stage 3 chronic kidney disease, unspecified whether stage 3a or 3b CKD (HCC) HTN, goal below 130/80 White coat syndrome with diagnosis of hypertension Albuminuria Ordered: 07/22/2023 PTH Lab Routine Stage 3 chronic kidney disease, unspecified whether stage 3a or 3b CKD (HCC) Ordered: 07/22/2023 25-HYDROXY VITAMIN D Lab Routine Stage 3 chronic kidney disease, unspecified whether stage 3a or 3b CKD (HCC) Ordered: 07/22/2023 PHOSPHORUS Lab Routine Stage 3 chronic kidney disease, unspecified whether stage 3a or 3b CKD (HCC) Ordered: 07/22/2023 BP MONITORING 24HR, AMBULATORY Procedures Routine Stage 3 chronic kidney disease, unspecified whether stage 3a or 3b CKD (HCC) HTN, goal below 130/80 White coat syndrome with diagnosis of hypertension Ordered: 07/22/2023 Health Maintenance Due Date Last Done Comments DXA Scan 1953 Depression Screening 1965 Diabetic Foot Exam 1971 Hepatitis C Screening 1971 DTaP,Tdap,and Td Vaccines (1 - Tdap) 1972 Mammogram 1993 Cologuard 1998 Colonoscopy 1998 Colorectal Cancer Screening 1998 Fecal Occult Blood Test 1998 Sigmoidoscopy 1998 Hepatitis B (1 of 3 - Risk 3-dose series) 2013 Pneumococcal Vaccine: 65+ Years (2 - PCV) 04/26/2021 04/26/2020, 05/16/2015 Diabetic Eye Exam 10/15/2022 10/15/2021, , 09/18/2019, Additional history exists CKD PHOS USE SMARTSET [id number] 04/15/2023 08/08/2021, 10/17/2021, 11/18/2017, Additional history exists COVID-19 Vaccine ( - season) 2023 05/15/2021, 10/29/2020, 10/08/2020 Influenza Vaccine (FLU shot) (#1) 2023 04/12/2021, 04/04/2020, 04/08/2019 Albumin/Creatinine Ratio 09/18/2023 023, 04/15/2022, 11/25/2021, Additional history exists GFR 09/19/2023 03/19/2023, 10/14, 09/18/2022, Additional history exists HbA1c 09/19/2023 03/19/2023, 10/2022, 11/25/2021, Additional history exists CKD HGB USE SMARTSET 57472 03/19/202403/19, 09/18/2022, 04/15/2022, Additional history exists Lipid Panel 03/19/2028 03/19/2023, 10/2022, 11/25/2021, Additional history exists Zoster Vaccines Completed 05/13/2020, 03/04/2020 GARDASIL-HPV IMMUNIZATION SERIES Aged Out No longer eligible based on patient's age to complete this topic MENINGOCOCCAL (MENACTRA/MENVEO) Aged Out No longer eligible based on patient's age to complete this topic documented as of this encounter Medical Devices Not on filedocumented as of this encounter Visit Diagnoses Diagnosis Stage 3 chronic kidney disease, unspecified whether stage 3a or 3b CKD (HCC)- Primary HTN, goal below 130/80 Unspecified essential hypertension White coat syndrome with diagnosis of hypertension Albuminuria Proteinuria documented in this encounter Advance Directives Latest [...] and were consensually agreed upon. Care Teams Fire Control Technician B Relationship Specialty Start Date End Date Eliza Arellano MD [address] [place] [address] PCP - General Family Medicine 04/05/17 documented as of this encounter
--- OUTSIDE RECORDS SUMMARY | 2023-09-21 15:17 | External Medical Summary | Summary of Care ---
Author Name Unknown Organization [facility] Address [address] [place] [address] Phone [phone] Care Team Providers Care Wool Batting Worker Name Role Phone Glen Arellano MD Primary Care Provider + [phone] Encounter Details Date Type Department Care Team (Late st Contact Info) Description 07/26/2023 Orders Only Nephrology, Will Romo [address] [facility] [address] GallardoMelissa galvez MD [address] [place] [address] Allergies Active Allergy Reactions Criticality Noted Date Comments Pioglitazone Rash 10/05/2019 Spironolactone Other (Please comment) 3 Severe dizziness even with low dose. documented as of this encounter (statuses as of 07/26/2023) Medications Medication Sig Dispensed Refills Start Date [...] as of this encounter (statuses as of 07/26/2023) Active Problems Problem Noted Date Diagnosed Date Type 2 diabetes mellitus wit h stage 3b chronic kidney disease 10/27/2021 Overview: Per CKD protocol Chronic kidney disease, stage 3b 10/27/2021 Overview: [...] Modified per HTN protocol #16. [employer] OTHER*[id number] 06/28/2009 ADVANCE DIRECTIVE INFORMATION 12/26/2008 Overview: No.No booklets available. documented as of this encounter (statuses as of 07/26/2023) Resolved Problems Problem Noted Date Diagnosed Date Resolved Date Chronic kidney disease, stage [...] as of this encounter (statuses as of 07/26/2023) Immunizations Name Administration Dates Next Due COVID-19 [...] 08/25/2023 9:00 AM EST Nurse Only Nephrology [address] [place] [address] [place], Nurse Nephrology [address] [place] [address] 04/25/2024 2:00 PM EDT Office Visit Nephrology [address] [place] [address] ZemaAbbie laird PA-C [address] [place] [address] Health Maintenance Due Date Last Done Comments [...] 10/15/2022 10/15/2021, , 09/18/2019, Additional history exists HbA1c 03/18/2023 03/19/2023, 02/10/2022, 11/25/2021, Additional history exists CKD PHOS USE SMARTSET 88636 04/15/2023 08/3 08/2021, 10/17/2021, 11/18/2017, Additional history exists COVID-19 Vaccine ( season) 2023 05/15/2021, 10/29/2020, 10/08/2020 Influenza Vaccine (FLU shot) (#1) 2023 04/12/2021, 04/04/2020, 04/08/2019 GFR 04/30/2023 03/19/2023, 10/14, 09/18/2022, Additional history exists Albumin/Creatinine Ratio 09/18/2023 023, 04/15/2022, 11/25/2021, Additional history exists CKD HGB USE SMARTSET 01397 09/18/202303/19, 09/18/2022, 04/15/2022, Additional history exists Lipid Panel 09/18/2027 03/19/2023, 10/2022, 11/25/2021, Additional history exists Zoster [...] Priority Date/Time Associated Diagnosis Comments CHEMISTRY-OUTSIDE Routine 03/19/2023 documented in this encounter Results * (ABNORMAL) CHEMISTRY-OUTSIDE (03/19/2023) Not all results display below - see scan for full detail OUTSIDE LAB (SEE SCANNED REPORT) Comment:SEE SCAN - CBCD CMP, LIPID, CREATININE-OUTSID E LAB 1.27(A) 0.55 - 1.02 MG/DL OUTSIDE LAB (SEE SCANNED REPORT) EGFR-OUTSIDE LAB 46 ML/MIN OUT SIDE LAB (SEE SCANNED REPORT) POTASSIUM-OUTSIDE LAB 4.0 3.5 - 5.1 MMOL/L OUTSIDE LAB (SEE SCANNED REPORT) GLUCOSE-OUTSIDE LAB 57(A) 70 - 110 MG/DL OUTSIDE LAB (SEE SCANNED REPORT) HOURS FASTING OUTSID E LAB (SEE SCANNED REPORT) TRIGLYCERIDES-OUT SIDE LAB 128 30 - 200 MG/DL OUTSIDE LAB (SEE SCANNED REPORT) CHOLESTEROL-OUTSI DE LAB 128 <200 MG/DL OUTSIDE LAB (SEE SCANNED REPORT) HDL-OUTSIDE LAB 45.0 40.0 - 59.0 MG/DL OUTSIDE LAB (SEE SCANNED REPORT) CHOL/HDL RATIO-OUTSIDE LAB OUTSIDE LA B (SEE SCANNED REPORT) LDL (CALCULATED)-OUTS JENNIFER LAB 57.40 MG/DL OUTSIDE LAB (SEE SCANNED REPORT) LDL (DIRECT MEASURE)-OUTSIDE LAB OUTSIDE LAB (SEE SCANNED REPORT) HEMOGLOBIN, [id number] LAB 8.4(A) 3.8 - 5.6 % OUTSIDE LAB (SEE SCANNED REPORT) PHOSPHORUS-OUTSID E LAB OUTSIDE LAB (SEE SCANNED REPORT) PTH-OUTSIDE LAB OUTS JENNIFER LAB (SEE SCANNED REPORT) MICROALBUMIN RATIO-OUTSIDE LAB OUTSIDE LA B (SEE SCANNED REPORT) PROTEIN, UA-OUTSIDE LAB OUTSIDE LAB (SEE SCANNED REPORT) HEMOGLOBIN-OUTSID E LAB 11.4(A) 12.0 - 16.0 G/DL OUTSIDE LAB (SEE SCANNED REPORT) 03/19/2023 Jana Watkins PA-C LABORATORY OUTSIDE LAB (SEE [...] and were consensually agreed upon. Care Teams Wool Batting Worker Relationship Specialty Start Date End Date Glen Arellano MD [address] [place] [address] PCP - General Family Medicine 04/05/17 documented as of this encounter
--- OUTSIDE RECORDS SUMMARY | 2023-09-21 15:17 | External Medical Summary | Summary of Care ---
Author Name Unknown Organization [facility] Address [address] [facility] [place] [address] Phone [phone] Care Team Providers Care Upholsterer Assembly Line Name Role Phone Glen Arellano MD Primary Care Provider + [phone] Reason for Visit * Reason Comments Blood Pressure Check Encounter Details Date Type Department Care Team (Late st Contact Info) Description 08/25/2023 9:00 AM EST Nurse Only Nephrology [address] [place] [address] [place], Nurse Nephrology [address] [place] [address] Blood Pressure Check Allergies Active Allergy Reactions Criticality Noted Date Comments Pioglitazone Rash 10/05/2019 Spironolactone Other (Please comment) 3 Severe dizziness even with low dose. documented as of this encounter (statuses as of 08/25/2023) Medications Medication Sig Dispensed Refills Start Date [...] as of this encounter (statuses as of 08/25/2023) Active Problems Problem Noted Date Diagnosed Date [...] Modified per HTN protocol #16. [facility] RESEARCH OTHER*[id number] 06/28/2009 ADVANCE DIRECTIVE INFORMATION 12/26/2008 Overview: No.No booklets available. documented as of this encounter (statuses as of 08/25/2023) Resolved Problems Problem Noted Date Diagnosed Date [...] as of this encounter (statuses as of 08/25/2023) Immunizations Name Administration Dates Next Due COVID-19 [...] Index - - documented in this encounter Nursing Notes * Eunice Austin RN - 08/25/2023 8:55 AM EST Ambulatory BP cuff size regular applied to right arm. BP monitor number [id number]. Log sheet, instructions on use and recording of activities explained to patient/caregiver with verbal understanding of same. [facility] home blood pressure cuff validated at this visit as well. documented in this encounter Plan of Treatment Upcoming Encounters Date Type Department Care Team (Late st Contact Info) Description 04/25/2024 2:00 PM EDT Office Visit Nephrology [address] [place] [address] Abbie Costello PA-C [address] [facility] [place], [place] [address] Health Maintenance Due Date Last Done Comments [...] 04/26/2021 04/26/2020, 05/16/2015 CKD PHOS USE SMARTSET 32402 04/15/2023 08/3 08/2021, 10/17/2021, 11/18/2017, Additional history exists COVID-19 Vaccine ( season) 2023 05/15/2021, 10/29/2020, 10/08/2020 Influenza Vaccine (FLU shot) (#1) 2023 04/12/2021, 04/04/2020, 04/08/2019 Albumin/Creatinine Ratio 09/18/2023 023, 04/15/2022, 11/25/2021, Additional history exists GFR 09/19/2023 03/19/2023, 10/14, 09/18/2022, Additional history exists CKD HGB USE SMARTSET 08214 03/19/202403/19, 09/18/2022, 04/15/2022, Additional history exists Lipid [...] and were consensually agreed upon. Care Teams Upholsterer Assembly Line Relationship Specialty Start Date End Date Glen Arellano MD [address] [place] [address] PCP - General Family Medicine 04/05/17 documented as of this encounter
[2023-09-21] MEDS: carvediloL 6.25 MG TAB PO SCH (17:16)
[2023-09-21 17:39] LABS: BUN Creatinine Ratio 11.1 (10-20); Calcium 8.1 mg/dl (8.6-10.3); Creatinine Clr Calc Pharmacy 17.2 ml/min; Est GFR (Non-African American) 16.4 ml/min
[2023-09-21] MEDS: INSULIN ASPART PER UNIT CHARGE SC SCH (18:25)
[2023-09-21] MEDS: LANTUS PER UNIT CHARGE SC SCH (20:55)
[2023-09-21] MEDS ORDERED: ROSUVASTATIN CALCIUM 20 MG TAB PO SCH (21:00)
[2023-09-21] MEDS: HEPARIN SOD 5,000 UNIT/0.5 ML VIAL SQ SCH (21:41)
[2023-09-22] MEDS: CARBOHYDRATES FOR HYPOGLYCEMIA PO PRN (01:41)
--- OUTSIDE RECORDS SUMMARY | 2023-09-22 03:56 | External Medical Summary | Summary of Care ---
Author Name Unknown Organization [facility] Address [address] [place] [address] Phone [phone] Care Team Providers Care Chemical Process Engineer Name Role Phone Glen Arellano MD Primary Care Provider + [phone] Reason for Visit * Reason Onset Date Comments Advice 09/21/2023 Encounter Details Date Type Department Care Team (Late st Contact Info) Description 09/21/2023 Telephone Nephrology [address] [place] [address] Services, Scheduling [address] [place] [address] Advice Allergies Active Allergy Reactions Criticality Noted Date Comments Pioglitazone Rash 10/05/2019 Spironolactone Other (Please comment) 3 Severe dizziness even with low dose. documented as of this encounter (statuses as of 09/21/2023) Medications Medication Sig Dispensed Refills Start Date [...] as of this encounter (statuses as of 09/21/2023) Active Problems Problem Noted Date Diagnosed Date [...] Modified per HTN protocol #16. [employer] RESEARCH OTHER*[id number] 06/28/2009 ADVANCE DIRECTIVE INFORMATION 12/26/2008 Overview: No.No booklets available. documented as of this encounter (statuses as of 09/21/2023) Resolved Problems Problem Noted Date Diagnosed Date [...] 02/07/200911/11 Overview: Per Obesity Taxonomy Mixed dyslipidemia 02/07/200907/29/200 9 Overview: Per Lipid Taxonomy. Other osteoporosis [...] as of this encounter (statuses as of 09/21/2023) Immunizations Name Administration Dates Next Due COVID-19 [...] on file documented as of this encounter Miscellaneous Notes * Telephone Encounter - Eunice Austin RN - 09/21/2023 9:28 AM EST Call placed to PCP and will call back as they were unavailable for call. * Telephone Encounter - Taylor Mason OSA - 09/21/2023 9:14 AM EST PCP office called and labs were done for pt and they advised her to go to ER for fluids and imaging. Office wanted to make provider aware. If there are any questions please call Soledad at [phone]. documented in this encounter Plan of Treatment Upcoming Encounters Date Type Department Care Team (Late st Contact Info) Description 04/25/2024 2:00 PM EDT Office Visit Nephrology [address] [place] [address] Abbie Costello PA-C [address] [place] [address] [place], [place] [address] Health Maintenance Due Date Last Done Comments [...] 04/26/2021 04/26/2020, 05/16/2015 COVID-19 Vaccine (4 - season) 2023 05/15/2021, 10/29/2020, 10/08/2020 Influenza Vaccine (FLU shot) (#1) 2023 04/12/2021, 04/04/2020, 04/08/2019 GFR 01/25/2024 07/26/2023, 08/0 11/2022, 10/28/2022, Additional history exists Albumin/Creatinine Ratio 07/26/2024 023, 09/18/2022, 04/15/2022, Additional history exists CKD HGB USE SMARTSET 90118 07/26/202407/26, 03/19/2023, 09/18/2022, Additional history exists CKD PHOS USE SMARTSET 88933 07/26/202407/16, 04/15/2022, 10/17/2021, Additional history exists Lipid Panel 07/26/2028 07/26/2023, 08/0 11/2022, 09/18/2022, Additional history exists [...] and were consensually agreed upon. Care Teams Chemical Process Engineer Relationship Specialty Start Date End Date Glen Arellano MD [address] [place] [address] PCP - General Family Medicine 04/05/17 documented as of this encounter
--- OUTSIDE RECORDS SUMMARY | 2023-09-22 03:56 | External Medical Summary | Summary of Care ---
Author Name Unknown Organization [facility] Address [address] [place] [address] Phone [phone] Care Team Providers Care Stiff Leg Operator Name Role Phone Glen Arellano MD Primary Care Provider + [phone] Reason for Visit * Reason Onset Date Comments Advice 09/21/2023 Encounter Details Date Type Department Care Team (Late st Contact Info) Description 09/21/2023 Telephone Ne[address] [place] [address] Services, Scheduling [address] [place] [address] Advice Allergies Active Allergy Reactions Criticality Noted [...] Modified per HTN protocol #16. LOPE[facility] RESEARCH OTHER*[id number] 06/28/2009 ADVANCE DIRECTIVE INFORMATION 12/26/2008 Overview: No.No [...] are any questions please call Soledad at [phone]. documented in this encounter Plan of Treatment Upcoming Encounters Date Type Department Care Team (Late st Contact Info) Description 04/25/2024 2:00 PM EDT Office Visit Nephrology [address] [place] [address] Abbie Costello PA-C [address] [place] [address] [place], [place] [address] Health Maintenance Due Date Last Done Comments [...] Additional history exists CKD HGB USE SMARTSET 88791 07/26/202407/26, 03/19/2023, 09/18/2022, Additional history exists CKD PHOS USE SMARTSET 99179 07/26/202407/16, 04/15/2022, 10/17/2021, Additional history exists Lipid [...] and were consensually agreed upon. Care Teams Stiff Leg Operator Relationship Specialty Start Date End Date Glen Arellano MD [address] [place] [address] PCP - General Family Medicine 04/05/17 documented as of this encounter
--- OUTSIDE RECORDS SUMMARY | 2023-09-22 03:56 | External Medical Summary | Summary of Care ---
Author Name Unknown Organization [facility] Address [address] [place] [address] Phone [phone] Care Team Providers Care Media Analytics Manager Name Role Phone Glen Arellano MD Primary Care Provider + [phone] Reason for Visit * Reason Onset Date Comments Advice 09/21/2023 Encounter Details Date Type Department Care Team (Late st Contact Info) Description 09/21/2023 Telephone Nephrology [address] [place] [address] Services, Scheduling [address] [place] [address] Advice Allergies Active Allergy Reactions Criticality Noted [...] Modified per HTN protocol #16. LOPE[facility] RESEARCH OTHER*[id number] 06/28/2009 ADVANCE DIRECTIVE INFORMATION 12/26/2008 Overview: No.No [...] Encounter - Eunice Austin RN - 09/21/2023 9:39 AM EST Spoke with Soledad at PCP office. She states that her recent lab results show decreased renal functionand she was advised to go to ER for further evaluation. She complains of feeling chronically fatigued. Labs being faxed to this office for review. * Telephone Encounter - Eunice Austin RN [...] are any questions please call Soledad at [phone]. documented in this encounter Plan of Treatment Upcoming Encounters Date Type Department Care Team (Late st Contact Info) Description 04/25/2024 2:00 PM EDT Office Visit Nephrology [address] [place] [address] Abbie Costello PA-C [address] [place] [address] [place] [address] Health Maintenance Due Date Last Done Comments [...] 04/26/2021 04/26/2020, 05/16/2015 COVID-19 Vaccine (4 - 2022-24 season) 2023 05/15/2021, 10/29/2020, 10/08/2020 Influenza Vaccine (FLU shot) (#1) 2023 04/12/2021, 04/04/2020, 04/08/2019 GFR 01/25/2024 07/26/2023, 08/0 11/2022, 10/28/2022, Additional history exists Albumin/Creatinine Ratio 07/26/2024 023, 09/18/2022, 04/15/2022, Additional history exists CKD HGB USE SMARTSET 23119 07/26/202407/26, 03/19/2023, 09/18/2022, Additional history exists CKD PHOS USE SMARTSET 44121 07/26/202407/16, 04/15/2022, 10/17/2021, Additional history exists Lipid [...] and were consensually agreed upon. Care Teams Media Analytics Manager Relationship Specialty Start Date End Date Glen Arellano MD [address] [place] [address] PCP - General Family Medicine 04/05/17 documented as of this encounter
[2023-09-22 06:55] LABS: Basophils # (auto) 0.02 K/uL (0.00-0.20); Basophils % (auto) 0.3 %; Eosinophils # (auto) 0.08 K/uL (0.00-0.50); Hematocrit (blood only) 27.4 % (37.0-47.0); Hemoglobin 9.2 g/dl (12.0-16.0); Immature Granulocytes # (auto) 0.02 K/uL (0.01-0.20); Immature Granulocytes % (auto) 0.3 %; Lymphocytes # (auto) 1.09 K/uL (1.20-3.40); Lymphocytes % (auto) 14.2 %; Mean Corpuscular Hemoglobin 28.1 pg (25.0-34.0); Mean Corpuscular Hgb Conc 33.6 g/dL (32.0-36.0); Mean Corpuscular Volume 83.8 fL (80.0-100.0); Monocytes # (auto) 0.67 K/uL (0.11-0.59); Monocytes % (auto) 8.7 %; Neutrophils # (auto) 5.79 K/uL (1.40-6.50); Neutrophils % (auto) 75.5 %; Platelet Count 204 K/uL (130-400); RDW Coefficient of Variation 13.7 % (11.5-14.5); RDW Standard Deviation 41.9 fL (36.4-46.3); Red Blood Count 3.27 M/uL (4.20-5.40); White Blood Count 7.67 K/ul (4.8-10.8)
[2023-09-22 07:13] LABS: Estimated Average Glucose 186 mg/dl; Hemoglobin A1C 8.1 % (4.5-5.6)
[2023-09-22 07:16] LABS: Calcium 8.6 mg/dl (8.6-10.3); Creatinine Clr Calc Pharmacy 17.8 ml/min; Est GFR (African American) 19.5 ml/min; Est GFR (Non-African American) 16.8 ml/min; Potassium 3.3 mmol/L (3.5-5.1)
[2023-09-22 07:25] LABS: Albumin Globulin Ratio 1.6 (0.9-2); Albumin Level 3.3 gm/dl (3.4-5.0); Bilirubin,Total 0.5 mg/dl (0.2-1.0); Globulin 2.1 gm/dl (2.5-4.0); Magnesium 1.9 mg/dl (1.7-2.4); Total Protein 5.4 gm/dl (6.0-8.3)
[2023-09-22] MEDS: PANTOprazole 40 MG TAB PO SCH (08:00)
[2023-09-22] MEDS: CHOLECALCIFEROL 125 MCG (5,000 UNITS) TAB PO SCH (08:00)
[2023-09-22] MEDS: POTASSIUM CHLORIDE CRTAB 20 MEQ TABCR PO ONE (09:05)
--- NOTE | 2023-09-22 10:12 | Nephrology Consultation ---
Date of Consultation September 22, 2023 Assessment & Plan (1) TRISTA (acute kidney injury): (2) Hypokalemia: (3) Non-traumatic rhabdomyolysis: TRISTA which seems pre renal but also significant component of Non traumatic Rhabdo. her CK was in the 5000+ range which for elderly female is high enough to cause TRISTA. Non traumatic Rhabdo can happen with combination of Ozempic and statin. Improving urine and improving renal function and also electrolytes. K was super low but now getting better--has got about 100 meq so far. will write for another 40 meq. I and O charting. Daily labs is fine now. Her urine sediment is active with proteinuria but this is in the setting of Acute rhabdo so will need to repeat at some point again in few days or outpt. Not suspecting Acute GN here. Overall making improvement. expect few days to get her labs back to baseline. Continue RL at 150/hr but keep an eye on the urine outpt Hold statin, Ozempic, ARB, metformin. No NSAIDS or contrast agent. Plan total time spent 60 mins. History of Present Illness Reason for Consultation: TRISTA Attending Physician: Tony Amador MD History of Present Illness 68/F with insulin needing T2DM, CKD-[address] Gallardo-baseline creat 1.4, Hx of Ilir en Y, HTN, hx of cervical/uterine Ca, urinary incontinence who presented to ED at referral of PCP due to abnormal outpt labs. nephrology Dr Gallardo last seen 07/26/23. On 07/26 cr was 1.7. Pt reports recently starting Ozempic at 0.25mg with dose increase to 0.5mg. With the Ozempic she has been complaining of decreased appetite, nausea, increase fatigue and malaise. She follows [facility] for incontinence. She has lost weight--173 to 154 since 05/09. She denies taking any NSAIDS, tobacco use or etoh use. Admission creat was 3 and K was 2.9 Since admission got iv fluids and also K supplement. Her CK was also high and also LFT --Statin and Ozempic On hold. also ARB and metformin hold. She feels lot better today--Lot less weak and not as much nausea. her urine was darkish at home but getting more clear now. K is 3.3 and Creat 2.75 now. ROS--12 systems reviewed and is otherwise negative. See HPI for +ve ROS Allergies Allergy/AdvReac Type Severity Reaction Status Date / Time pioglitazone [From [employer]] Allergy itching, Verified 05/03/23 10:24 swelling Home Medications Medication Instructions Recorded Confirmed Type Lactobacillus 1 cap PO QAM 03/08/19 09/21/23 History acidophilus-Bifidobac.animalis 31 billion cell capsule cyanocobalamin (vitamin B-12) 1,000 mcg IM Q30D 03/08/19 09/21/23 History 1,000 mcg/mL injection solution pantoprazole 40 mg tablet,delayed 40 mg PO QAM 03/08/19 09/21/23 History release pen needle, diabetic 32 gauge x #10 ea 04/14/19 03/30/23 History 5/32" (BD Ultra-Fine Georgie Pen Needle) rosuvastatin 40 mg tablet 40 mg PO HS 04/14/19 09/21/23 History irbesartan 150 mg tablet (Avapro) 150 mg PO QAM 08/29/20 09/21/23 History carvedilol 6.25 mg tablet (Coreg) 6.25 mg PO BID 09/15/21 09/21/23 History cholecalciferol (vitamin D3) 125 125 mcg PO QAM 09/15/21 09/21/23 History mcg (5,000 unit) capsule insulin glargine 100 unit/mL (3 50 unit subcut HS 09/15/21 09/21/23 History mL) subcutaneous pen (Lantus Solostar U-100 Insulin) flash glucose scanning reader #1 ea 09/16/21 05/03/23 Rx (FreeStyle [place] 2 [place]) flash glucose sensor (FreeStyle #6 ea 03/11/22 05/03/23 Rx Sidney 2 Sensor kit) metformin 500 mg tablet,extended 1,000 mg (2 x 500 mg) PO BID #360 05/12/22 09/21/23 Rx release 24 hr tabs baclofen 10 mg tablet 10 mg PO DAILY PRN muscle spasms 10/26/22 09/21/23 History ciprofloxacin HCl 500 mg tablet 500 mg PO BID PRN UTI symptoms #30 01/27/23 09/21/23 Rx tabs flash glucose sensor (FreeStyle #2 ea 04/20/23 05/03/23 Rx [place] 2 Sensor kit) insulin lispro 100 unit/mL See Rx Instructions subcut .COMPLEX 05/03/23 09/21/23 History subcutaneous solution (Humalog U-100 Insulin) insulin syringe-needle U-100 0.5 #10 ea 05/03/23 05/03/23 History mL 31 gauge x 5/16" (BD Insulin Syringe Ultra-Fine) semaglutide 0.25 mg or 0.5 mg (2 0.5 mg subcut Q7D 09/21/23 09/21/23 History mg/3 mL) subcutaneous pen injector (Ozempic) Patient History Medical History History of uterine cancer 1982, uterine and cervical; only surgical tx needed Palpitations Recurrent UTI Surgical History History of arthroscopy of both shoulders History of esophagogastroduodenoscopy (EGD) Hx of colonoscopy Hx of total hysterectomy with removal of both tubes and ovaries History of cardiac cath 2012, was having neck pain and issues, ph kiesha, no stents>no findings; [place] [facility] [place]x of fusion of cervical spine x2, 1 year apart; ROM "is good" Hx of cataract extraction rt/lt Gastric bypass status for obesity ~2008 History of cholecystectomy Family History Mother Coronary heart disease Social History Smoking Status: Never smoker Second Hand Exposure: Yes (hx [phone]); Do You Dip or Chew Tobacco: No; Hx Alcohol Use: No Hx Substance Use: No Preferred Language: Italian Communication Ability: Effective Hoseman Required: No Beliefs That Will Affect Care: None marital status: Current Living Situation: Spouse current occupational status: retired Feels Safe at Home: Yes Safety Concerns: Feels Safe At This Time Assistive Devices: None Physical Exam Physical Exam: Awake and alert. No distress. Normal Speech and accurate ENMT: MM moist. neck Supple. No JVD Respiratory: b/l clear. Cardiovascular: S1 and S2 regular. No murmur heard. Gastrointestinal (Abdomen): Soft Non tender. Skin: No rash Noted Neurologic: Normal Speech. No focal deficit noted Results & Data Vital Signs (Past 12 Hours) Vital Signs Temp Pulse Pulse Resp BP Pulse Ox O2 Del Method 09/22/23 08:24 36.7 C 81 16 169/80 H 97 Room Air 09/22/23 07:19 76 09/22/23 04:11 36.6 C 79 20 162/74 H 96 Room Air 09/22/23 00:30 36.5 C 70 20 165/82 H 97 Room Air 09/21/23 23:00 75 Laboratory Results reviewed both outpt and inpt Diagnostic Findings renal US--unremarkable
--- NOTE | 2023-09-22 14:51 | Hospitalist Progress Note ---
Date of Service September 22, 2023 Assessment & Plan (1) Acute worsening of stage 3 chronic kidney disease: (2) Hypokalemia: (3) Diabetic nephropathy associated with type 2 diabetes mellitus: (4) Hypertension: (5) Dyslipidemia: Plan Patient is a 68 yr female with H/O Insulin dependent T2DM, CKD-[address] Gallardo, Hx of Ilir en Y, HTN, hx of cervical/uterine Ca, urinary incontinence who presents to ED at referral of PCP due to abnormal labs. TRISTA on CKD III Baseline cr ~1.4 Cr:3.05>2.8>2.75 TRISTA likely due to Rhabdo/poor oral intake secondary to Ozempic --Renal USD:No hydronephrosis. Normal bladder. -- [facility] Continue to hold metformin, irbesartan, Ozempic Continue IV fluids Appreciate nephrology input Avoid nephrotoxic agents as able Nontraumatic rhabdomyolysis --CK: 5168>4372 Hold statin Continue IV fluids Monitor CK levels Hypokalemia Replace and monitor Mild transaminitis Secondary to rhabdo LFTs trending down Monitor DM II HbA1c 8.1 Ozempic discontinued Continue insulin while hospitalized Hold metformin while hospitalized Monitor BGs HTN chronic, stable continue Coreg Hold irbesartan Monitor BP DVT Px: SQ Heparin Code Status FULL CODE Admission and Anticipated Discharge Date Admission Date: September 21, 2023 Subjective Patient is seen and examined at bedside Generalized weakness much improved Dizziness resolved States having transient nausea this morning but no vomiting Denies any chest pain, dyspnea No other complaints Discussed with nephrology today Review of Systems Review of Systems: All systems reviewed & are unremarkable except as noted in Subjective Physical Exam Physical Exam: Physical Exam: Vitals signs as noted above General Appearance:Moderately built and nourished, no apparent distress Head: normocephalic, Atraumatic Eyes: normal inspection, EOMI Neck: supple, Trachea midline Respiratory/Chest: Normal breath sounds, CTA, No accessory muscle use Cardiovascular: S1, S2, No murmur Abdomen/GI:Soft, Non tender, Bowel sounds present Extremities/Musculoskeletal:normal inspection, no edema Neurologic/Psych:AAOX3, grossly no focal neurological deficits Skin: normal color, warm Results & Data Results & Data Vital Signs (Past 12 Hours) Vital Signs Temp Pulse Pulse Resp BP Pulse Ox O2 Del Method 09/22/23 11:44 36.6 C 78 16 154/74 H 99 Room Air 09/22/23 08:24 36.7 C 81 16 169/80 H 97 Room Air 09/22/23 07:19 76 09/22/23 04:11 36.6 C 79 20 162/74 H 96 Room Air Laboratory Results Short CBC 09/22/23 Range/Units 06:08 WBC 7.67 (4.8-10.8) K/ul Hgb 9.2 L (12.0-16.0) g/dl Hct 27.4 L (37.0-47.0) % Plt Count 204 (130-400) K/uL BMP 09/21/23 09/22/23 16:46 06:08 Sodium 138 140 Potassium 3.0 L 3.3 L Chloride 105 106 Carbon Dioxide 25 28 BUN 31 H 33 H Creatinine 2.80 H 2.75 H Glucose 54 L 100 H Calcium 8.1 L 8.6 Cardiac Enzymes 09/21/23 09/22/23 Range/Units 11:30 06:08 Total Creatine Kinase 5168 H 4372 H (26-192) U/L Liver Function 09/22/23 Range/Units 06:08 Total Bilirubin 0.5 (0.2-1.0) mg/dl AST 127 H (13-39) U/L ALT 138 H (7-52) U/L Alkaline Phosphatase 62 (34-104) U/L Albumin 3.3 L (3.4-5.0) gm/dl
[2023-09-22] MEDS: POTASSIUM CHLORIDE CRTAB 20 MEQ TABCR PO SCH (22:43)
[2023-09-22] MEDS: carvediloL 3.125 MG TAB PO ONE (23:52)
[2023-09-23 06:02] LABS: Basophils # (auto) 0.02 K/uL (0.00-0.20); Basophils % (auto) 0.3 %; Eosinophils # (auto) 0.11 K/uL (0.00-0.50); Eosinophils % (auto) 1.9 %; Hematocrit (blood only) 25.2 % (37.0-47.0); Hemoglobin 8.6 g/dl (12.0-16.0); Immature Granulocytes # (auto) 0.03 K/uL (0.01-0.20); Immature Granulocytes % (auto) 0.5 %; Lymphocytes # (auto) 1.02 K/uL (1.20-3.40); Lymphocytes % (auto) 17.3 %; Mean Corpuscular Hemoglobin 28.4 pg (25.0-34.0); Mean Corpuscular Hgb Conc 34.1 g/dL (32.0-36.0); Mean Corpuscular Volume 83.2 fL (80.0-100.0); Monocytes # (auto) 0.57 K/uL (0.11-0.59); Monocytes % (auto) 9.6 %; Neutrophils # (auto) 4.16 K/uL (1.40-6.50); Neutrophils % (auto) 70.4 %; Platelet Count 189 K/uL (130-400); RDW Coefficient of Variation 13.7 % (11.5-14.5); RDW Standard Deviation 41.1 fL (36.4-46.3); Red Blood Count 3.03 M/uL (4.20-5.40); White Blood Count 5.91 K/ul (4.8-10.8)
[2023-09-23 06:37] LABS: Albumin Globulin Ratio 1.7 (0.9-2); Albumin Level 3.2 gm/dl (3.4-5.0); BUN Creatinine Ratio 12.6 (10-20); Bilirubin,Total 0.6 mg/dl (0.2-1.0); Calcium 8.6 mg/dl (8.6-10.3); Creatinine Clr Calc Pharmacy 19.3 ml/min; Est GFR (African American) 20.7 ml/min; Est GFR (Non-African American) 17.9 ml/min; Globulin 1.9 gm/dl (2.5-4.0); Magnesium 1.8 mg/dl (1.7-2.4); Phosphorus 2.6 mg/dl (2.5-4.9); Potassium 4.1 mmol/L (3.5-5.1); Total Protein 5.1 gm/dl (6.0-8.3)
[2023-09-23] MEDS ORDERED: carvediloL 6.25 MG TAB PO SCH (08:00)
[2023-09-23] MEDS: carvediloL 3.125 MG TAB PO SCH (09:16)
--- NOTE | 2023-09-23 10:28 | Nephrology Progress Note ---
Date of Service September 23, 2023 Assessment & Plan Admission and Anticipated Discharge Date Admission Date: September 21, 2023 Subjective Assessment & Plan (1) TRISTA (acute kidney injury): (2) Hypokalemia: (3) Non-traumatic rhabdomyolysis: TRISTA which seems pre renal but also significant component of Non traumatic Rhabdo. her CK was in the 5000+ range which for elderly female is high enough to cause TRISTA with toxic ATN. Non traumatic Rhabdo can happen with combination of Ozempic and statin. Improving urine and improving renal function and also electrolytes. K is now normal So can d/c KCL supplement. I and O charting. Daily labs is enough now. Her urine sediment is active with proteinuria but this is in the setting of Acute rhabdo so will need to repeat again--will do again in few days or outpt. Not suspecting Acute GN here. Overall making improvement. expect few days to get her labs back to baseline. Continue RL at 100/hr but keep an eye on the urine outpt CReat coming down but not as fast as in Pure pre renal type. SO clearly major Component was related with toxic ATN from Rhabdo Hold statin, Ozempic, ARB, metformin. No NSAIDS or contrast agent. Case discussed with primary team. S---Feels fine. NO new issues. Overall feels stronger. getting IV fluid. making lot of urine--no ortega. ROS---12 Systems reviewed and negative Physical Exam Physical Exam: Awake and alert. No distress. Normal Speech and accurate ENMT: MM moist. neck Supple. No JVD Respiratory: b/l clear. Cardiovascular: S1 and S2 regular. No murmur heard. Gastrointestinal (Abdomen): Soft Non tender. Skin: No rash Noted Neurologic: Normal Speech. No focal deficit noted Results & Data Vital Signs (Past 12 Hours) Vital Signs Temp Pulse Pulse Resp BP Pulse Ox O2 Del Method 09/23/23 08:04 36.7 C 82 18 154/68 H 98 Room Air 09/23/23 04:45 168/70 H 09/23/23 04:00 36.6 C 75 18 186/79 H 97 Room Air 09/23/23 00:00 82 09/22/23 23:15 36.3 C L 84 18 188/76 H 98 Room Air
[2023-09-23] MEDS ORDERED: hydrALAZINE 10 MG TAB PO PRN (16:21)
--- NOTE | 2023-09-23 16:23 | Hospitalist Progress Note ---
Date of Service September 23, 2023 Assessment & Plan (1) Acute worsening of stage 3 chronic kidney disease: (2) Hypokalemia: (3) Diabetic nephropathy associated with type 2 diabetes mellitus: (4) Hypertension: (5) Dyslipidemia: Plan Patient is a 68 yr female with H/O Insulin dependent T2DM, CKD-[address] Gallardo, Hx of Ilir en Y, HTN, hx of cervical/uterine Ca, urinary incontinence who presents to ED at referral of PCP due to abnormal labs. TRISTA on CKD III Baseline cr ~1.4 Cr:3.05>2.8>2.75>2.6 TRISTA likely due to Rhabdo/poor oral intake secondary to Ozempic --Renal USD:No hydronephrosis. Normal bladder. -- Follows with [facility] nephrology as outpatient Continue to hold metformin, irbesartan, Ozempic Continue IV fluids Appreciate nephrology input Avoid nephrotoxic agents as able Hemoglobin dropped dilutional secondary to IV fluids No bleeding issues Nontraumatic rhabdomyolysis --CK: [id number] Hold statin Continue IV fluids Monitor CK levels Hypokalemia Replace and monitor Mild transaminitis Secondary to rhabdo LFTs trending down Monitor DM II HbA1c 8.1 Ozempic discontinued Continue insulin while hospitalized Hold metformin while hospitalized Monitor BGs HTN BP elevated likely due to aggressive IV fluids and holding irbesartan Up titrate Coreg dose PO Hydralazine as needed Hold irbesartan for now Monitor BP DVT Px: SQ Heparin Code Status FULL CODE Admission and Anticipated Discharge Date Admission Date: September 21, 2023 Subjective Patient is seen and examined at bedside States feeling a lot better today Offers no specific complaints Renal function improving Denies any chest pain, dyspnea, nausea, vomiting, abdominal pain Review of Systems Review of Systems: All systems reviewed & are unremarkable except as noted in Subjective Physical Exam Physical Exam: Physical Exam: Vitals signs as noted above General Appearance:Moderately built and nourished, no apparent distress Head: normocephalic, Atraumatic Eyes: normal inspection, EOMI Neck: supple, Trachea midline Respiratory/Chest: Normal breath sounds, CTA, No accessory muscle use Cardiovascular: S1, S2, No murmur Abdomen/GI:Soft, Non tender, Bowel sounds present Extremities/Musculoskeletal:normal inspection, no edema Neurologic/Psych:AAOX3, grossly no focal neurological deficits Skin: normal color, warm Results & Data Results & Data Vital Signs (Past 12 Hours) Vital Signs Temp Pulse Pulse Resp BP Pulse Ox O2 Del Method 09/23/23 15:22 36.7 C 74 18 164/82 H 98 Room Air 09/23/23 14:03 79 09/23/23 11:45 36.5 C 87 16 137/81 96 Room Air 09/23/23 08:04 36.7 C 82 18 154/68 H 98 Room Air 09/23/23 04:45 168/70 H Laboratory Results Short CBC 09/23/23 Range/Units 05:19 WBC 5.91 (4.8-10.8) K/ul Hgb 8.6 L (12.0-16.0) g/dl Hct 25.2 L (37.0-47.0) % Plt Count 189 (130-400) K/uL BMP 09/23/23 05:19 Sodium 141 Potassium 4.1 D Chloride 108 H Carbon Dioxide 28 BUN 33 H Creatinine 2.61 H Glucose 83 Calcium 8.6 Cardiac Enzymes 09/23/23 Range/Units 05:19 Total Creatine Kinase 3223 H (26-192) U/L Liver Function 09/23/23 Range/Units 05:19 Total Bilirubin 0.6 (0.2-1.0) mg/dl AST 101 H (13-39) U/L ALT 131 H (7-52) U/L Alkaline Phosphatase 56 (34-104) U/L Albumin 3.2 L (3.4-5.0) gm/dl
[2023-09-23] MEDS: ONDANSETRON INJ 2 MG/ML 2 ML VIAL IV PRN (18:23)
[2023-09-24 06:19] LABS: Albumin Globulin Ratio 1.5 (0.9-2); BUN Creatinine Ratio 12.2 (10-20); Bilirubin,Total 0.7 mg/dl (0.2-1.0); Calcium 8.6 mg/dl (8.6-10.3); Creatinine Clr Calc Pharmacy 18.4 ml/min; Est GFR (African American) 19.9 ml/min; Est GFR (Non-African American) 17.2 ml/min; Potassium 4.5 mmol/L (3.5-5.1)
[2023-09-24] MEDS: ACETAMINOPHEN 325 MG TAB PO PRN (07:20)
--- NOTE | 2023-09-24 08:44 | Nephrology Progress Note ---
Date of Service September 24, 2023 Assessment & Plan Admission and Anticipated Discharge Date Admission Date: September 21, 2023 Subjective Assessment & Plan (1) TRISTA (acute kidney injury) on background CKD 3b: (2) Hypokalemia: (3) Non-traumatic rhabdomyolysis: TRISTA which seems pre renal but also significant ATN component of Non traumatic Rhabdo. Her CK was in the 5000+ range which for elderly female is high enough to cause TRISTA with toxic ATN. Non traumatic Rhabdo can happen with combination of Ozempic and statin. Creat improved a bit but now has stalled. Still 2..7 after 2 days even though has got lot of iv fluids--this means this is mostly ATN from Rhabdo than simple pre renal. K is now normal without KCL supplement. I and O charting. Daily labs is enough now. Her urine sediment is active with proteinuria but this is in the setting of Acute rhabdo so will need to repeat again--will do again in few days or outpt. Not suspecting Acute GN here. Change the fluid to lower rate of NS at 75/hr. BP is high--add Norvasc 2.5 mg. Continue to Hold statin, Ozempic, ARB, metformin. No NSAIDS or contrast agent. Case discussed with primary team. S---Feels fine. No new issues. Overall feels stronger. getting IV fluid. making lot of urine--no ortega. However Labs did not improve overnight. ROS---12 Systems reviewed and negative Physical Exam Physical Exam: Awake and alert. No distress. Normal Speech and accurate ENMT: MM moist. neck Supple. No JVD Respiratory: b/l clear. Cardiovascular: S1 and S2 regular. No murmur heard. Gastrointestinal (Abdomen): Soft Non tender. Skin: No rash Noted Neurologic: Normal Speech. No focal deficit noted Results & Data Vital Signs (Past 12 Hours) Vital Signs Temp Pulse Pulse Resp BP Pulse Ox O2 Del Method 09/24/23 07:58 36.8 C 82 20 179/72 H 97 Room Air 09/24/23 05:59 69 09/24/23 03:22 36.7 C 75 18 130/66 95 Room Air 09/23/23 23:09 36.5 C 74 18 151/73 H 96 Room Air 09/23/23 22:49 70
[2023-09-24] MEDS: SODIUM CHLORIDE 0.9% 1,000 ML IV SCH (09:11)
[2023-09-24] MEDS: amLODIPine BESYLATE 5 MG TAB PO SCH (10:00)
[2023-09-24] MEDS: POLYETHYLENE (MIRALAX) 17 GM PACK PO PRN (16:49)
--- NOTE | 2023-09-24 16:52 | Hospitalist Progress Note ---
Date of Service September 24, 2023 Assessment & Plan (1) Acute worsening of stage 3 chronic kidney disease: (2) Hypokalemia: (3) Diabetic nephropathy associated with type 2 diabetes mellitus: (4) Hypertension: (5) Dyslipidemia: Plan Patient is a 68 yr female with H/O Insulin dependent T2DM, CKD-[address] Gallardo, Hx of Ilir en Y, HTN, hx of cervical/uterine Ca, urinary incontinence who presents to ED at referral of PCP due to abnormal labs. TRISTA on CKD III Baseline cr ~1.4 Cr:3.05>2.8>2.7 TRISTA/ATN likely due to Rhabdo/poor oral intake secondary to Ozempic --Renal USD:No hydronephrosis. Normal bladder. -- [facility] Continue to hold metformin, irbesartan, Ozempic Avoid nephrotoxic agents as able Hemoglobin dropped dilutional secondary to IV fluids No bleeding issues Appreciate nephrology input Continue IV fluids per nephrology Nontraumatic rhabdomyolysis --CK: [id number] Hold statin Continue IV fluids Monitor CK levels Hypokalemia Replace and monitor Mild transaminitis Secondary to rhabdo LFTs trended down Monitor DM II HbA1c 8.1 Ozempic discontinued Continue insulin while hospitalized Hold metformin while hospitalized Monitor BGs HTN BP elevated likely due to aggressive IV fluids and holding irbesartan Up titrated Coreg dose PO Hydralazine as needed Hold irbesartan for now Added Norvasc 2.5 mg for better BP control DVT Px: SQ Heparin Code Status FULL CODE Admission and Anticipated Discharge Date Admission Date: September 21, 2023 Subjective Patient is seen and examined at bedside Subjectively feels well this morning Reports nausea overnight which resolved CK levels continue to improve Renal function stable Denies any chest pain, dyspnea, nausea, vomiting, abdominal pain Review of Systems Review of Systems: All systems reviewed & are unremarkable except as noted in Subjective Physical Exam Physical Exam: Physical Exam: Vitals signs as noted above General Appearance:Moderately built and nourished, no apparent distress Head: normocephalic, Atraumatic Eyes: normal inspection, EOMI Neck: supple, Trachea midline Respiratory/Chest: Normal breath sounds, CTA, No accessory muscle use Cardiovascular: S1, S2, No murmur Abdomen/GI:Soft, Non tender, Bowel sounds present Extremities/Musculoskeletal:normal inspection, no edema Neurologic/Psych:AAOX3, grossly no focal neurological deficits Skin: normal color, warm Results & Data Results & Data Vital Signs (Past 12 Hours) Vital Signs Temp Pulse Pulse Resp BP Pulse Ox O2 Del Method 09/24/23 15:10 36.6 C 74 20 135/75 96 Room Air 09/24/23 14:09 75 09/24/23 11:34 36.4 C L 72 20 157/89 H 94 Room Air 09/24/23 07:58 36.8 C 82 20 179/72 H 97 Room Air 09/24/23 05:59 69 Laboratory Results [facility] 09/24/23 05:29 Sodium 139 Potassium 4.5 Chloride 106 Carbon Dioxide 28 BUN 33 H Creatinine 2.70 H Glucose 82 Calcium 8.6 Cardiac Enzymes 09/24/23 Range/Units 05:29 Total Creatine Kinase 1838 H (26-192) U/L Liver Function 09/24/23 Range/Units 05:29 Total Bilirubin 0.7 (0.2-1.0) mg/dl AST 74 H (13-39) U/L ALT 115 H (7-52) U/L Alkaline Phosphatase 57 (34-104) U/L Albumin 3.0 L (3.4-5.0) gm/dl
[2023-09-24 19:04] LABS: Appearance Urine Clear (Clear); Bacteria Urine Automated Negative (Negative); Bilirubin Urine Negative (Negative); Blood Urine 3+ (Negative); Color Urine Yellow; Epithelial Cell Urine Auto >30 /lpf (0-5); Glucose Urine UA Trace (Negative); Ketones Urine Negative (Negative); Leukocyte Esterase Urine Trace (Negative); Nitrite Urine Negative (Negative); Protein Urine Trace (Negative); RBC Urine Automated 0-4 /hpf (0-4); Specific Gravity Urine 1.009 (1.000-1.030); Urobilinogen Urine Negative (Negative)
[2023-09-24 19:13] LABS: Total Protein Urine Random 28.9 mg/dl (0-11.9)
[2023-09-24 19:19] LABS: Creatinine Urine Random 23.9 mg/dl; Protein Creatinine Ratio Urine 1.2 (0-0.2)
[2023-09-25 06:05] LABS: BUN Creatinine Ratio 13.3 (10-20); Calcium 8.7 mg/dl (8.6-10.3); Creatinine Clr Calc Pharmacy 20.7 ml/min; Est GFR (African American) 22.9 ml/min; Est GFR (Non-African American) 19.8 ml/min; Potassium 4.5 mmol/L (3.5-5.1)
--- NOTE | 2023-09-25 10:12 | Nephrology Progress Note ---
Date of Service September 25, 2023 Assessment & Plan (1) TRISTA (acute kidney injury): Plan: TRISTA which seems pre renal but also significant component of Non traumatic Rhabdo. her CK was in the 5000+ range which for elderly female is high enough to cause TRISTA. Non traumatic Rhabdo can happen with combination of Ozempic and statin. Improving urine and Plateaued renal function K wnl Her urine sediment is active with proteinuria but this is in the setting of Acute rhabdo so will need to repeat at some point again in few days or outpt. Not suspecting Acute GN here. Overall making improvement. expect few days to get her labs back to baseline. Continue NS AT 75 mls/hr. INcrease Amlodipine to 5 mg daily, Hold statin, Ozempic, ARB, metformin. No NSAIDS or contrast agent. (2) Hypokalemia: Plan: Improved (3) Non-traumatic rhabdomyolysis: Plan: Improving w/ fluids Plan total time spent 60 mins. Admission and Anticipated Discharge Date Admission Date: September 21, 2023 Subjective Patient is seen and examined at bedside Renal function stable Denies any chest pain, dyspnea, nausea, vomiting, abdominal pain Review of Systems 2 Review of Systems: All systems reviewed & are unremarkable except as noted in HPI & below Physical Exam 2 Physical Exam: General Appearance:Moderately built and nourished, no apparent distress Head: normocephalic, Atraumatic Eyes: normal inspection, EOMI Neck: supple, Trachea midline Respiratory/Chest: Normal breath sounds, CTA, No accessory muscle use Cardiovascular: S1, S2, No murmur Abdomen/GI:Soft, Non tender, Bowel sounds present Extremities/Musculoskeletal:normal inspection, no edema Neurologic/Psych:AAOX3, grossly no focal neurological deficits Skin: normal color, warm Results & Data Vital Signs (Past 12 Hours) Vital Signs Temp Pulse Pulse Resp BP Pulse Ox O2 Del Method 09/25/23 07:53 36.9 C 71 18 166/78 H 97 Room Air 09/25/23 07:27 69 09/25/23 03:10 36.6 C 71 20 130/73 94 Room Air 09/24/23 22:56 36.7 C 80 20 147/72 H 96 Room Air 09/24/23 22:09 70 Laboratory Results 09/23/23 05:19 09/25/23 05:22
--- NOTE | 2023-09-25 13:57 | Hospitalist Progress Note ---
Date of Service September 25, 2023 Assessment & Plan (1) Acute worsening of stage 3 chronic kidney disease: (2) Hypokalemia: (3) Diabetic nephropathy associated with type 2 diabetes mellitus: (4) Hypertension: (5) Dyslipidemia: Plan Patient is a 68 yr female with H/O Insulin dependent T2DM, CKD-[address] Gallardo, Hx of Ilir en Y, HTN, hx of cervical/uterine Ca, urinary incontinence who presents to ED at referral of PCP due to abnormal labs. TRISTA on CKD III Baseline cr ~1.4 Cr:3.05>2.8>2.7>2.4 TRISTA/ATN likely due to Rhabdo/poor oral intake secondary to Ozempic --Renal USD:No hydronephrosis. Normal bladder. -- Follows with [facility] nephrology as outpatient Continue to hold metformin, irbesartan, Ozempic Avoid nephrotoxic agents as able Hemoglobin dropped dilutional secondary to IV fluids No bleeding issues Appreciate nephrology input Continue IV fluids per nephrology Continue current management Likely discharge in 1 to 2 days Nontraumatic rhabdomyolysis --CK: [id number] Hold statin Continue IV fluids Monitor CK levels Hypokalemia Replace and monitor Mild transaminitis Secondary to rhabdo LFTs trended down Monitor DM II HbA1c 8.1 Ozempic discontinued Continue insulin while hospitalized Hold metformin while hospitalized Monitor BGs HTN BP elevated likely due to aggressive IV fluids and holding irbesartan Up titrated Coreg dose PO Hydralazine as needed Hold irbesartan for now Increase amlodipine to 5 mg daily DVT Px: SQ Heparin Code Status FULL CODE Admission and Anticipated Discharge Date Admission Date: September 21, 2023 Subjective Patient is seen and examined at bedside No complaints Subjectively feels well Renal function continues to improve Eager to get discharged Discussed with nephrology today Denies any chest pain, dyspnea, nausea, vomiting, abdominal pain Review of Systems Review of Systems: All systems reviewed & are unremarkable except as noted in Subjective Physical Exam Physical Exam: Physical Exam: Vitals signs as noted above General Appearance:Moderately built and nourished, no apparent distress Head: normocephalic, Atraumatic Eyes: normal inspection, EOMI Neck: supple, Trachea midline Respiratory/Chest: Normal breath sounds, CTA, No accessory muscle use Cardiovascular: S1, S2, No murmur Abdomen/GI:Soft, Non tender, Bowel sounds present Extremities/Musculoskeletal:normal inspection, no edema Neurologic/Psych:AAOX3, grossly no focal neurological deficits Skin: normal color, warm Results & Data Results & Data Vital Signs (Past 12 Hours) Vital Signs Temp Pulse Pulse Resp BP Pulse Ox O2 Del Method 09/25/23 11:43 36.3 C L 76 17 156/78 H 96 Room Air 09/25/23 07:53 36.9 C 71 18 166/78 H 97 Room Air 09/25/23 07:27 69 09/25/23 03:10 36.6 C 71 20 130/73 94 Room Air Laboratory Results [facility] 09/25/23 05:22 Sodium 140 Potassium 4.5 Chloride 106 Carbon Dioxide 30 BUN 32 H Creatinine 2.40 H D Glucose 89 Calcium 8.7 Cardiac Enzymes 09/25/23 Range/Units 05:22 Total Creatine Kinase 1071 H (26-192) U/L Urine 09/24/23 Range/Units 18:48 Urine Color Yellow Urine Appearance Clear (Clear) Urine pH 6.0 (4.5-7.5) Ur Specific Ola 1.009 (1.000-1.030) Urine Protein Trace H (Negative) Urine Glucose (UA) Trace H (Negative)
[2023-09-26 06:39] LABS: Calcium 8.6 mg/dl (8.6-10.3); Potassium 3.8 mmol/L (3.5-5.1)
[2023-09-26 06:45] LABS: BUN Creatinine Ratio 13.6 (10-20); Creatinine Clr Calc Pharmacy 23.3 ml/min; Est GFR (African American) 25.3 ml/min; Est GFR (Non-African American) 21.9 ml/min
[2023-09-26 06:47] LABS: Hematocrit (blood only) 25.7 % (37.0-47.0); Hemoglobin 8.4 g/dl (12.0-16.0)
--- NOTE | 2023-09-26 11:37 | Hospitalist Progress Note ---
Date of Service September 26, 2023 Assessment & Plan (1) Acute worsening of stage 3 chronic kidney disease: Plan Patient is a 68 yr female with H/O Insulin dependent T2DM, CKD-[address] Gallardo, Hx of Ilir en Y, HTN, hx of cervical/uterine Ca, urinary incontinence who presents to ED at referral of PCP due to abnormal labs. TRISTA on CKD III Baseline cr ~1.4 Cr:3.05>2.8>2.7>2.4>2.2 TRISTA/ATN likely due to Rhabdo/poor oral intake secondary to Ozempic --Renal USD:No hydronephrosis. Normal bladder. -- [facility] as [facility] Continue to hold metformin, irbesartan, Ozempic Avoid nephrotoxic agents as able Hemoglobin dropped dilutional secondary to IV fluids No bleeding issues Appreciate nephrology input Plan to discontinue Ozempic and hold irbesartan, metformin on discharge Advised to follow-up with nephrology with repeat blood work as outpatient Nontraumatic rhabdomyolysis --CK: [id number] Hold statin Continue IV fluids Monitor CK levels Hypokalemia Replace and monitor Mild transaminitis Secondary to rhabdo LFTs trended down Monitor DM II HbA1c 8.1 Ozempic discontinued Continue insulin while hospitalized Hold metformin while hospitalized Monitor BGs HTN BP elevated likely due to aggressive IV fluids and holding irbesartan Up titrated Coreg dose PO Hydralazine as needed Hold irbesartan for now Added Norvasc 5 mg daily DVT Px: SQ Heparin Code Status FULL CODE Disposition Home Admission and Anticipated Discharge Date Admission Date: September 21, 2023 Subjective Patient is seen and examined at bedside States feeling well today Agree with discharge Offers no complaints Denies any chest pain, dyspnea, nausea, vomiting, abdominal pain Renal function improved Review of Systems Review of Systems: All systems reviewed & are unremarkable except as noted in Subjective Physical Exam Physical Exam: Physical Exam: Vitals signs as noted above General Appearance:Moderately built and nourished, no apparent distress Head: normocephalic, Atraumatic Eyes: normal inspection, EOMI Neck: supple, Trachea midline Respiratory/Chest: Normal breath sounds, CTA, No accessory muscle use Cardiovascular: S1, S2, No murmur Abdomen/GI:Soft, Non tender, Bowel sounds present Extremities/Musculoskeletal:normal inspection, no edema Neurologic/Psych:AAOX3, grossly no focal neurological deficits Skin: normal color, warm Results & Data Results & Data Vital Signs (Past 12 Hours) Vital Signs Temp Pulse Pulse Resp BP Pulse Ox O2 Del Method 09/26/23 11:10 36.6 C 94 H 17 150/84 H 95 Room Air 09/26/23 07:52 36.5 C 71 16 171/80 H 96 Room Air 09/26/23 07:24 72 09/26/23 03:25 36.5 C 69 20 120/65 96 Room Air Laboratory Results Short CBC 09/26/23 Range/Units 05:18 Hgb 8.4 L (12.0-16.0) g/dl Hct 25.7 L (37.0-47.0) % BMP 09/26/23 05:18 Sodium 141 Potassium 3.8 Chloride 106 Carbon Dioxide 29 BUN 30 H Creatinine 2.21 H Glucose 91 Calcium 8.6 Cardiac Enzymes 09/26/23 Range/Units 05:18 Total Creatine Kinase 632 H (26-192) U/L
--- NOTE | 2023-09-26 11:46 | Discharge Summary ---
Date of Service September 26, 2023 Admission HPI Per Admitting Provider This is a 68 yr old F who has a significant PMH of insulin dependent T2DM, CKD-[address] Gallardo, Hx of Ilir en Y, HTN, hx of cervical/uterine Ca, urinary incontinence who presents to ED at referral of PCP due to abnormal labs. Pt follows Dr. Gallardo of [facility] and was last seen 07/26/23. This note was reviewed. Baseline cr around 1.2-1.4. On 07/26 cr was 1.7. Pt reports recently starting Ozempic at 0.25mg with dose increase to 0.5mg. She initially started the medication back in April of 2023. Since this time she complains of decreased appetite, increase fatigue and malaise. She denies f/c/s, chest pain, sob, uri sx, n/v/d, abd pain. She denies prior hx of kidney stone, urinary freq/dysuria, or hematuria. She feels she has been urinating about the same, no less/more. She follows [facility] for incontinence, Cardiology and endocrine for diabetes. Pt PCP records unable to be reviewed, PCP Dr. Arellano. She further complains of central back pain in shoulder blade region. She has loss weight, 173 to 154 since 05/09. The sight/smell of food does not set right with her. She is always thirsty. She denies taking any NSAIDS, tobacco use or etoh use. Admission Exam Per Admitting Provider GENERAL APPEARANCE: AxOx4, unwell appearing F, no acute distress. HEENT: NC, AT. MMM. EOMI, clear conjunctiva, oropharynx clear. NECK: Supple without lymphadenopathy. No stiffness or restricted ROM. HEART: Normal rate and regular rhythm, normal S1/S1, no m/r/g LUNGS: CTAB, moving air well. No crackles or wheezes are heard. ABDOMEN: Soft, nontender, nondistended with good bowel sounds heard. BACK: mild CVAT, no obvious deformity. EXTREMITIES: Without cyanosis, clubbing or edema. NEUROLOGICAL: Grossly nonfocal. Alert and oriented, moving all 4 extremities. CN not formally tested but appear grossly intact. Skin: Warm and dry without any rash. Principal Diagnosis TRISTA on CKD III Nontraumatic rhabdomyolysis Hypertension Discharge Data Allergies Allergy/AdvReac Type Severity Reaction Status Date / Time pioglitazone [From Shoopios] Allergy itching, Verified 05/03/23 10:24 swelling Consultations 09/21/23 12:56 ED Decision to Admit Stat 09/21/23 13:13 Consult Nephrology Routine Procedures Performed Laboratory Results WBC 5.91 K/ul (4.8-10.8) 09/23/23 05:19 RBC 3.03 M/uL (4.20-5.40) L 09/23/23 05:19 Hgb 8.4 g/dl (12.0-16.0) L 09/26/23 05:18 Hct 25.7 % (37.0-47.0) L 09/26/23 05:18 MCV 83.2 fL (80.0-100.0) 09/23/23 05:19 MCH 28.4 pg (25.0-34.0) 09/23/23 05:19 MCHC 34.1 g/dL (32.0-36.0) 09/23/23 05:19 RDW Std Deviation 41.1 fL (36.4-46.3) 09/23/23 05:19 RDW Coeff of Dany 13.7 % (11.5-14.5) 09/23/23 05:19 Plt Count 189 K/uL (130-400) 09/23/23 05:19 MPV 10.0 fL (9.4-12.4) 09/23/23 05:19 Immature Gran % (Auto) 0.5 % 09/23/23 05:19 Neut % (Auto) 70.4 % 09/23/23 05:19 Lymph % (Auto) 17.3 % 09/23/23 05:19 [place] % (Auto) 9.6 % 09/23/23 05:19 Eos % (Auto) 1.9 % 09/23/23 05:19 Baso % (Auto) 0.3 % 09/23/23 05:19 Neut # (Auto) 4.16 K/uL (1.40-6.50) 09/23/23 05:19 Lymph # (Auto) 1.02 K/uL (1.20-3.40) L 09/23/23 05:19 [place] # (Auto) 0.57 K/uL (0.11-0.59) 09/23/23 05:19 Eos # (Auto) 0.11 K/uL (0.00-0.50) 09/23/23 05:19 Baso # (Auto) 0.02 K/uL (0.00-0.20) 09/23/23 05:19 Immature Gran # (Auto) 0.03 K/uL (0.01-0.20) 09/23/23 05:19 Sodium 141 mmol/L (136-145) 09/26/23 05:18 Potassium 3.8 mmol/L (3.5-5.1) 09/26/23 05:18 Chloride 106 mmol/L (98-107) 09/26/23 05:18 Carbon Dioxide 29 mmol/L (21-32) 09/26/23 05:18 Anion Gap 6 (3-11) 09/26/23 05:18 BUN 30 mg/dl (6-23) H 09/26/23 05:18 Creatinine 2.21 mg/dl (0.6-1.2) H 09/26/23 05:18 Est Cr Clr Drug Dosing 23.3 ml/min 09/26/23 05:18 Est GFR ( Amer) 25.3 ml/min 09/26/23 05:18 Est GFR (Non-Af Amer) 21.9 ml/min 09/26/23 05:18 BUN/Creatinine Ratio 13.6 (10-20) 09/26/23 05:18 Glucose 91 mg/dl (70-99(Fasting)) 09/26/23 05:18 POC Glucose 106 mg/dl (70-99) H 09/26/23 08:23 Estimat Average Glucose 186 mg/dl 09/22/23 06:08 Hemoglobin A1c 8.1 % (4.5-5.6) H 09/22/23 06:08 Calcium 8.6 mg/dl (8.6-10.3) 09/26/23 05:18 Phosphorus 2.6 mg/dl (2.5-4.9) 09/23/23 05:19 Magnesium 1.8 mg/dl (1.7-2.4) 09/23/23 05:19 Total Bilirubin 0.7 mg/dl (0.2-1.0) 09/24/23 05:29 AST 74 U/L (13-39) H 09/24/23 05:29 ALT 115 U/L (7-52) H 09/24/23 05:29 Alkaline Phosphatase 57 U/L (34-104) 09/24/23 05:29 Total Creatine Kinase 632 U/L (26-192) H 09/26/23 05:18 Total Protein 5.0 gm/dl (6.0-8.3) L 09/24/23 05:29 Albumin 3.0 gm/dl (3.4-5.0) L 09/24/23 05:29 Globulin 2.0 gm/dl (2.5-4.0) L 09/24/23 05:29 Albumin/Globulin Ratio 1.5 (0.9-2) 09/24/23 05:29 Lipase 41 U/L (11-82) 09/21/23 11:30 Urine Color Yellow 09/24/23 18:48 Urine Appearance Clear (Clear) 09/24/23 18:48 Urine pH 6.0 (4.5-7.5) 09/24/23 18:48 Ur Specific [place] 1.009 (1.000-1.030) 09/24/23 18:48 Urine Protein Trace (Negative) H 09/24/23 18:48 Urine Glucose (UA) Trace (Negative) H 09/24/23 18:48 Urine Ketones Negative (Negative) 09/24/23 18:48 Urine Blood 3+ (Negative) H 09/24/23 18:48 Urine Nitrite Negative (Negative) 09/24/23 18:48 Urine Bilirubin Negative (Negative) 09/24/23 18:48 Urine Urobilinogen Negative (Negative) 09/24/23 18:48 Ur Leukocyte Esterase Trace (Negative) H 09/24/23 18:48 Urine WBC (Auto) 1-5 /hpf (0-5) 09/24/23 18:48 Urine RBC (Auto) 0-4 /hpf (0-4) 09/24/23 18:48 U Hyaline Cast (Auto) 1-5 /lpf (0-5) 09/24/23 18:48 U Epithel Cells (Auto) >30 /lpf (0-5) H 09/24/23 18:48 Urine Bacteria (Auto) Negative (Negative) 09/24/23 18:48 Urine Yeast Not Reportable 09/21/23 13:06 Ur Random Creatinine 23.9 mg/dl 09/24/23 18:48 U Random Total Protein 28.9 mg/dl (0-11.9) H 09/24/23 18:48 Protein/Creatinin Ratio 1.2 (0-0.2) H 09/24/23 18:48 Urine Sodium 16 mmol/L 09/21/23 13:06 Urine Potassium 14.4 mmol/L 09/21/23 13:06 Urine Chloride 21 mmol/L 09/21/23 13:06 Impressions Renal Ultrasound 09/21/23 12:40 RENAL ULTRASOUND HISTORY: Acute kidney injury. COMPARISON: Renal ultrasound 05/24/2017. FINDINGS: Right kidney: 11.4 cm. No hydronephrosis. This 1.3 cm parapelvic cyst. Normal corticomedullary differentiation and cortical thickness. Left kidney: 12.3 cm. No hydronephrosis. Normal corticomedullary differentiation and cortical thickness. Bladder: No bladder wall thickening. Only the left ureteral jet was identified this time. IMPRESSION: 1. No hydronephrosis. 2. Normal bladder. ACT 112: Negative or not required by law. Electronically signed by: Zach Machuca M.D. 09/21/2023 2:54 PM Ordered Studies 09/21/23 12:40 US renal/blad retro comp Stat Hospital Course (1) Acute worsening of stage 3 chronic kidney disease: Plan Patient is a 68 yr female with H/O Insulin dependent T2DM, CKD-[address] Gallardo, Hx of Ilir en Y, HTN, hx of cervical/uterine Ca, urinary incontinence who presents to ED at referral of PCP due to abnormal labs. TRISTA on CKD III Baseline cr ~1.4 Cr:3.05>2.8>2.7>2.4>2.2 TRISTA/ATN likely due to Rhabdo/poor oral intake secondary to Ozempic --Renal USD:No hydronephrosis. Normal bladder. -- Follows with [facility] as outpatient Continue to hold metformin, irbesartan, Ozempic Avoid nephrotoxic agents as able Hemoglobin dropped dilutional secondary to IV fluids No bleeding issues Appreciate nephrology input Plan to discontinue Ozempic and hold irbesartan, metformin on discharge Advised to follow-up with nephrology with repeat blood work as outpatient Nontraumatic rhabdomyolysis --CK: [id number] Hold statin Continue IV fluids Monitor CK levels Hypokalemia Replace and monitor Mild transaminitis Secondary to rhabdo LFTs trended down Monitor DM II HbA1c 8.1 Ozempic discontinued Continue insulin while hospitalized Hold metformin while hospitalized Monitor BGs HTN BP elevated likely due to aggressive IV fluids and holding irbesartan Up titrated Coreg dose PO Hydralazine as needed Hold irbesartan for now Added Norvasc 5 mg daily DVT Px: SQ Heparin Code Status FULL CODE Disposition Home Total Time Total Time Spent Total Time Spent (In Minutes): 55 minutes Discharge Plan Discharge Items Patient Disposition: Home - Self-Care Reason For Visit: TRISTA Discharge Diagnosis: TRISTA on CKD III Nontraumatic rhabdomyolysis Hypertension Activity: Per Instructions section Exercise/Sports: Gradually increase as tolerated Non-emergency contact: Primary Care Provider and Bottle Inspector Call non-emergency contact if: you have any medication questions, your symptoms worsen, your pain is concerning for you and you have a fever Follow-up/Referrals: Glne Arellano [Primary Care Provider] - Diet: Carb Consistent or DM2 Addtl Attending Provider Instructions: Follow-up with your primary care physician in 1 week Follow-up with your instructor of spanish / in 1 week --- Hold taking metformin, Ozempic, irbesartan and atorvastatin until further instructions by your primary care physician as advised. --- Monitor your blood glucose levels and blood pressure regularly at home and discuss with your physician for further adjustment of medications as needed. --Get blood (basic metabolic panel) in 3 days and follow-up with your physician for further recommendations Seek immediate medical attention if your symptoms reoccur or worsen Please take all medications as instructed on discharge list below. Please call if you have any questions or problems. You can reach a [facility] hospitalist on duty at [facility] 24 hours a day by calling [phone] Pending Studies at Discharge: No Stand-Alone Forms: [facility] [place] [facility] [place], Smoking Cessation Medications and DC Order Prescriptions: New amlodipine [Norvasc] 5 mg Tablet 5 mg PO QAM Qty: 30 0RF Continued (DME) FreeStyle [place] 2 Sensor Kit See Rx Instructions .Route Qty: 6 3RF Rx Instructions: change every 14 days ciprofloxacin HCl 500 mg tablet 500 mg PO BID PRN (Reason: UTI symptoms) Qty: 30 1RF Rx Instructions: Start at the onset of UTI symptoms, take twice daily for 3 days. Call if no improvement. (DME) insulin syringe-needle U-100 [BD Insulin Syringe Ultra-Fine] 0.5 mL 31 gauge x 5/16" syringe See Rx Instructions .ROUTE .MEDSUPPLY Qty: 10 Rx Instructions: As directed insulin lispro [Humalog U-100 Insulin] 100 unit/mL solution See Rx Instructions subcut .COMPLEX Rx Instructions: 20 units plus sliding scale with meals. MDD 60 units subcutaneously; carvedilol [Coreg] 6.25 mg tablet 6.25 mg PO BID Rx Instructions: must administer with a meal/food cholecalciferol (vitamin D3) 125 mcg (5,000 unit) capsule 125 mcg PO QAM Lantus Solostar U-100 Insulin 100 unit/mL (3 mL) insulin pen 50 unit SQ HS (DME) FreeStyle [place] 2 [place] Misc See Rx Instructions .Route Qty: 1 0RF Rx Instructions: As directed cyanocobalamin (vitamin B-12) 1,000 mcg/mL solution 1,000 mcg IM Q30D Patient Comments: 1,000 mcg IM Once a month; Rx Instructions: 1,000 mcg IM Once a month; pantoprazole 40 mg tablet,delayed release (DR/EC) 40 mg PO QAM L. acidophilus/Bifid. animalis 31 billion cell capsule 1 cap PO QAM (DME) pen needle, diabetic [BD Ultra-Fine [place]ie Pen Needle] 32 gauge x 5/32" needle See Dose Instructions .ROUTE .MEDSUPPLY Qty: 10 Rx Instructions: use to inject 4 times daily baclofen 10 mg tablet 10 mg PO DAILY PRN (Reason: muscle spasms) (DME) FreeStyle [place] 2 Sensor Kit See Rx Instructions miscellaneous .MEDSUPPLY Qty: 2 11RF Rx Instructions: change evry 14 days Held metformin 500 mg tablet extended release 24 hr 1,000 mg PO BID Qty: 360 3RF Hold Instructions: Until further instructions from your primary care physician irbesartan [Avapro] 150 mg tablet 150 mg PO QAM Hold Instructions: Until further instructions from your primary care physician rosuvastatin 40 mg tablet 40 mg PO HS Hold Instructions: Until further instructions from your primary care physician Discontinued Ozempic 0.25 mg or 0.5 mg (2 mg/3 mL) pen injector 0.5 mg subcut Q7D Discharge Orders: Discharge Order (Routine); Ordered 09/26/23 Ordered By: Tony Negrete/Other Patient Handouts: Hypoglycemia (Low Blood Sugar), Managing Type 2 Diabetes Admission Data Admit Date/Time: 09/21/23 13:02 Attending Provider: Tony Amador Admit Provider: Mónica Zamorano Primary Care Provider: Glen Arellano Other Providers: Adrian Waldron; Mónica Zamorano
== END 2023-09-26 13:05 | disposition home or self-care (01) | DRG 558 ==
LOC: ED 10:35 → EDINP 13:02 → SUATTDRO 13:02 → 2N 14:54